=== PATIENT | male | born 1930 | race American Indian/Alaskan Native ===

== ENCOUNTER 2020-05-05 13:02 | Emergency (ER) | payer MEDICARE ==
--- NOTE | 2020-05-05 14:04 | Emergency Department Report ---
ED General Adult HPI - General Chief complaint: BP Check / Ring removal req Stated complaint: HYPOTENSION Time Seen by Provider: 05/05/20 13:48 Source: EMS Mode of arrival: Stretcher Limitations: Altered Mental Status, Physical Limitation - History of Present Illness Initial comments: The patient presents to the emergency department via EMS from a doctor's appointment. Per the facility the patient presented from EMS was called due to the patient having a systolic blood pressure in the 80s. Upon EMSs arrival the patient's blood pressure was normotensive and since has had normal blood pressures. Patient denies chest pain, shortness breath, or abdominal pain. -: unknown Severity scale (0 -10): 0 Consistency: now resolved Improves with: none Worsens with: none Associated Symptoms: denies other symptoms Treatments Prior to Arrival: none - Related Data Home Medications Medication Instructions Recorded Confirmed Last Taken Losartan [Cozaar] 50 mg PO DAILY 04/12/14 04/29/14 04/27/14 21:30 Lovastatin [Altoprev] 40 mg PO QHS 04/12/14 04/29/14 04/28/14 22:20 Tamsulosin [Flomax] 0.4 mg PO DAILY 04/12/14 04/29/14 04/28/14 10:30 Previous Rx's Medication Instructions Recorded Last Taken Type Dexamethasone (Nf) [Decadron (Nf)] 0.5 mg PO Q12HR #60 tablet 04/26/14 04/29/14 08:01 Rx Insulin Glulisine [Apidra] 10 units SUB-Q AC #100 units 04/26/14 04/28/14 22:20 Rx Ipratropium/Albuterol Sulfate 1 ampul IH TIDRT #1 mo 04/26/14 Unknown Rx [DUONEB *Not for PRN Use*] levETIRAcetam [Keppra] 750 mg PO Q12HR #1 bottle 04/26/14 04/29/14 07:51 Rx Ferrous Gluconate [Fergon 325 MG 324 mg PO QDAY #30 tablet 10/14/19 Unknown Rx tab] Pantoprazole [Protonix TAB] 40 mg PO BID #30 tablet 10/14/19 04/28/14 10:30 Rx Allergies Allergy/AdvReac Type Severity Reaction Status Date / Time No Known Allergies Allergy Verified 04/12/14 05:29 ED Review of Systems ROS: Stated complaint: HYPOTENSION Other details as noted in HPI Comment: All other systems reviewed and negative Constitutional: denies: chills, fever Eyes: denies: eye pain, eye discharge, vision change ENT: denies: ear pain, throat pain Respiratory: denies: cough, shortness of breath, wheezing Cardiovascular: denies: chest pain, palpitations Endocrine: no symptoms reported Gastrointestinal: denies: abdominal pain, nausea, diarrhea Genitourinary: denies: urgency, dysuria Musculoskeletal: denies: back pain, joint swelling, arthralgia Skin: denies: rash, lesions Neurological: denies: headache, weakness, paresthesias Psychiatric: denies: anxiety, depression Hematological/Lymphatic: denies: easy bleeding, easy bruising ED Past Medical Hx - Past Medical History Previous Medical History?: Yes Hx Hypertension: Yes Hx Diabetes: Yes Hx Seizures: Yes (brain tumor) - Surgical History Hx Pacemaker: No Hx Internal Defibrillator: No - Social History Smoking Status: Unknown if ever smoked - Medications Home Medications: Home Medications Medication Instructions Recorded Confirmed Last Taken Type Losartan [Cozaar] 50 mg PO DAILY 04/12/14 04/29/14 04/27/14 21:30 History Lovastatin [Altoprev] 40 mg PO QHS 04/12/14 04/29/14 04/28/14 22:20 History Tamsulosin [Flomax] 0.4 mg PO DAILY 04/12/14 04/29/14 04/28/14 10:30 History Dexamethasone (Nf) [Decadron (Nf)] 0.5 mg PO Q12HR #60 tablet 04/26/14 04/29/14 04/29/14 08:01 Rx Insulin Glulisine [Apidra] 10 units SUB-Q AC #100 units 04/26/14 04/29/14 04/28/14 22:20 Rx Ipratropium/Albuterol Sulfate 1 ampul IH TIDRT #1 mo 04/26/14 04/29/14 Unknown R x [DUONEB *Not for PRN Use*] levETIRAcetam [Keppra] 750 mg PO Q12HR #1 bottle 04/26/14 04/29/14 04/29/14 07:51 Rx Ferrous Gluconate [Fergon 325 MG 324 mg PO QDAY #30 tablet 10/14/19 Unknown Rx tab] Pantoprazole [Protonix TAB] 40 mg PO BID #30 tablet 10/14/19 04/29/14 04/28/14 10:30 Rx ED Physical Exam - General Limitations: Altered Mental Status, Physical Limitation General appearance: alert, in no apparent distress, other (Patient is cold to touch) - Head Head exam: Present: atraumatic, normocephalic - Eye Eye exam: Present: normal appearance, PERRL, EOMI - ENT ENT exam: Present: mucous membranes moist - Neck Neck exam: Present: normal inspection - Respiratory Respiratory exam: Present: normal lung sounds bilaterally. Absent: respiratory distress - Cardiovascular Cardiovascular Exam: Present: regular rate, normal rhythm. Absent: systolic murmur, diastolic murmur, rubs, gallop - GI/Abdominal GI/Abdominal exam: Present: soft, normal bowel sounds. Absent: distended, tenderness - Rectal Rectal exam: Present: deferred - Extremities Exam Extremities exam: Present: normal inspection - Back Exam Back exam: Present: normal inspection - Neurological Exam Neurological exam: Present: alert, oriented X3, CN II-XII intact. Absent: motor sensory deficit - Psychiatric Psychiatric exam: Present: normal affect, normal mood - Skin Skin exam: Present: warm, dry, intact, normal color. Absent: rash ED Course Vital Signs 05/05/20 05/05/20 13:31 15:31 Temperature 97.9 F Pulse Rate 91 H 80 Respiratory 15 20 Rate Blood Pressure 125/57 106/49 [Right] O2 Sat by Pulse 97 100 Oximetry ED Medical Decision Making - Lab Data Result diagrams: 05/05/20 14:26 05/05/20 14:26 Lab Results 05/05/20 05/05/20 05/05/20 Range/Units 14:26 14:26 16:09 WBC 5.7 (4.5-11.0) K/mm3 RBC 3.29 L (3.65-5.03) M/mm3 Hgb 9.4 L (11.8-15.2) gm/dl Hct 29.4 L (35.5-45.6) % MCV 89 (84-94) fl MCH 29 (28-32) pg MCHC 32 (32-34) % RDW 15.8 H (13.2-15.2) % Plt Count 376 (140-440) K/mm3 Lymph % (Auto) 8.5 L (13.4-35.0) % [place] % (Auto) 5.7 (0.0-7.3) % Eos % (Auto) 0.2 (0.0-4.3) % Baso % (Auto) 0.4 (0.0-1.8) % Lymph # (Auto) 0.5 L (1.2-5.4) K/mm3 [place] # (Auto) 0.3 (0.0-0.8) K/mm3 Eos # (Auto) 0.0 (0.0-0.4) K/mm3 Baso # (Auto) 0.0 (0.0-0.1) K/mm3 Seg Neutrophils % 85.2 H (40.0-70.0) % Seg Neutrophils # 4.8 (1.8-7.7) K/mm3 Sodium 140 (137-145) mmol/L Potassium 4.6 (3.6-5.0) mmol/L Chloride 105.6 (98-107) mmol/L Carbon Dioxide 23 (22-30) mmol/L Anion Gap 16 mmol/L BUN 11 (9-20) mg/dL Creatinine 0.6 L (0.8-1.3) mg/dL Estimated GFR > 60 ml/min BUN/Creatinine Ratio 18 % Glucose 143 H (75-100) mg/dL Calcium 8.3 L (8.4-10.2) mg/dL Total Bilirubin 0.30 (0.1-1.2) mg/dL AST 38 (5-40) units/L ALT 12 (7-56) units/L Alkaline Phosphatase 354 H (35-129) units/L Total Protein 5.6 L (6.3-8.2) g/dL Albumin 2.8 L (3.9-5) g/dL Albumin/Globulin Ratio 1.0 % Urine Color Yellow (Yellow) Urine Turbidity Clear (Clear) Urine pH 6.0 (5.0-7.0) Ur Specific [place] 1.015 (1.003-1.030) Urine Protein 30 mg/dl (Negative) mg/dL Urine Glucose (UA) Neg (Negative) mg/dL Urine Ketones Neg (Negative) mg/dL Urine Blood Neg (Negative) Urine Nitrite Neg (Negative) Urine Bilirubin Neg (Negative) Urine Urobilinogen 2.0 (<2.0) mg/dL Ur Leukocyte Esterase Neg (Negative) Urine WBC (Auto) 2.0 (0.0-6.0) /HPF Urine RBC (Auto) 1.0 (0.0-6.0) /HPF U Epithel Cells (Auto) < 1.0 (0-13.0) /HPF Hyaline Casts 1 /LPF Urine Mucus Few /HPF - Radiology Data Radiology results: report reviewed - Medical Decision Making Results discussed with patient Patient stayed normotensive throughout his ED stay and without complaints The area and BP reading prior to the patient's ED might have been secondary to operational error Critical care attestation.: If time is entered above; I have spent that time in minutes in the direct care of this critically ill patient, excluding procedure time. ED Disposition Clinical Impression: Abnormal blood pressure, Blood pressure, low, incidental finding Disposition: DC-01 TO HOME OR SELFCARE Is pt being admited?: No Does the pt Need Aspirin: No Condition: Stable Instructions: How to Take Your Blood Pressure, [id number], Form - Blood Pressure Record Sheet Additional Instructions: Return if worse Referrals: JONATHON METCALF MD [Primary Care Provider] - 3-5 Days Time of Disposition: 16:38
[2020-05-05 14:47] LABS: Basophils % (Auto) 0.4 % (0.0-1.8); Eosinophils % (Auto) 0.2 % (0.0-4.3); Hematocrit 29.4 % (35.5-45.6); Hemoglobin 9.4 gm/dl (11.8-15.2); Lymphocytes # (Auto) 0.5 K/mm3 (1.2-5.4); Lymphocytes % (Auto) 8.5 % (13.4-35.0); Mean Corpuscular HGB Conc 32 % (32-34); Mean Corpuscular Volume 89 fl (84-94); Monocytes # (Auto) 0.3 K/mm3 (0.0-0.8); Monocytes % (Auto) 5.7 % (0.0-7.3); Platelet Count 376 K/mm3 (140-440); Red Blood Count 3.29 M/mm3 (3.65-5.03); Red Cell Distribution Width 15.8 % (13.2-15.2)
--- NOTE | 2020-05-05 15:09 | XRay Report ---
XR chest 1V ap INDICATION / CLINICAL INFORMATION: hypotension. COMPARISON: 04/24/2014 FINDINGS: SUPPORT DEVICES: None. HEART /PULMONARY VASCULATURE: No significant abnormality. LUNGS / PLEURA: Low lung volumes are present. There is no definite airspace consolidation. No pleural effusion. No pneumothorax. ADDITIONAL FINDINGS: No significant additional findings. IMPRESSION: Low lung volumes without acute cardiopulmonary abnormality. Signer Name: Caden Ivy MD Signed: 05/05/2020 3:05 PM Workstation Name: [id number]
[2020-05-05 15:32] VITALS: BP 106/49
[2020-05-05 15:50] LABS: Alanine Aminotransferase 12 units/L (7-56); Albumin 2.8 g/dL (3.9-5); Blood Urea Nitrogen 11 mg/dL (9-20); Calcium 8.3 mg/dL (8.4-10.2); Hemolysis Index 15
[2020-05-05 15:55] LABS: BUN/Creatinine Ratio 18
[2020-05-05 16:19] LABS: Bilirubin,Urine NEG (Negative); Blood,Urine NEG (Negative); Color,Urine Yellow (Yellow); Hyaline Casts,Urine 1 /LPF; Mucus,Urine FEW /HPF
== END 2020-05-05 18:14 | disposition home or self-care (01) ==
LOC: ED 13:02
DX: I95.9 Hypotension, unspecified (principal); E11.9 Type 2 diabetes mellitus without complications; R56.9 Unspecified convulsions; Z79.4 Long term (current) use of insulin; Z79.899 Other long term (current) drug therapy
CPT/HCPCS: 36415; 71045; 80053; 81001; 85025

== ENCOUNTER 2020-06-14 20:49 | Emergency (ER) | payer MEDICARE ==
--- NOTE | 2020-06-14 22:22 | Event Note ---
ED Screening Note Date of service: 06/14/20 Time: 22:00 ED Screening Note: Patient is an 89-year-old -[place] male with a history of chronic iron deficiency anemia and hypertension who presents to the ED with complaint of persistent gradually worsening generalized weakness and fatigue for the last 3 months, worse in the last 1 week. Family states that the patient has also had lack of appetite in the last 4 days. Family states that the patient is unable to walk and perform normal activities of daily living because of worsening weakness. Patient denies chest pain, shortness of breath, dizziness, syncope, abdominal pain, nausea and vomiting, diarrhea, fever, chills, cough, change in vision or headache. This initial assessment/diagnostic orders/clinical plan/treatment(s) is/are subject to change based on patients health status, clinical progression and re- assessment by fellow clinical providers in the ED. Further treatment and workup at subsequent clinical providers discretion. Patient/guardian urged not to elope from the ED as their condition may be serious if not clinically assessed and managed. Initial orders include: CBC, [employer], UA, Troponin, EKG, CXR
--- NOTE | 2020-06-14 22:56 | XRay Report ---
CHEST 1 VIEW INDICATION: Generalized weakness. COMPARISON: 05/05/2020 FINDINGS: Support devices: None. Heart: Normal. Lungs/Pleura: No acute pulmonary or pleural findings. IMPRESSION: 1. No acute findings, no significant change. Signer Name: Shane Schaffer MD Signed: 06/14/2020 10:51 PM Workstation Name: [id number]
[2020-06-14 23:55] LABS: Basophils % (Auto) 0.2 % (0.0-1.8); Hematocrit 28.6 % (35.5-45.6); Hemoglobin 9.2 gm/dl (11.8-15.2); Lymphocytes # (Auto) 0.7 K/mm3 (1.2-5.4); Lymphocytes % (Auto) 6.5 % (13.4-35.0); Mean Corpuscular HGB Conc 32 % (32-34); Mean Corpuscular Volume 87 fl (84-94); Monocytes # (Auto) 0.5 K/mm3 (0.0-0.8); Monocytes % (Auto) 5.1 % (0.0-7.3); Platelet Count 417 K/mm3 (140-440); Red Blood Count 3.29 M/mm3 (3.65-5.03); Red Cell Distribution Width 16.7 % (13.2-15.2)
[2020-06-15 00:02] LABS: Alanine Aminotransferase 33 units/L (7-56); Blood Urea Nitrogen 15 mg/dL (9-20); Calcium 8.3 mg/dL (8.4-10.2); Hemolysis Index 14
[2020-06-15 00:11] LABS: BUN/Creatinine Ratio 25
--- NOTE | 2020-06-15 00:13 | Emergency Department Report ---
- General Chief complaint: Weakness Stated complaint: DIABETIC/NOT ON INSULIN/VERY LETHARGIC/NOT EATING Time Seen by Provider: 06/14/20 23:42 Source: patient, family Mode of arrival: Wheelchair Limitations: Physical Limitation - History of Present Illness Initial comments: 89-year-old male, history of diabetes, anemia, hyperlipidemia, presents to ED with generalized weakness. Daughter at bedside to give history. States patient has been becoming increasingly weaker over the last couple of weeks. She states patient is unable to walk using his walker or stand for long peers of time anymore. Daughter states this became worse today. States patient has no appetite and is not eating as he usually does. She denies that patient has had any fever, vomiting, diarrhea cough. However, patient is actively coughing during my exam. Daughter reports patient has not been vaccinated for COVID-19, nor has any other family members on the home. She states they are not comfortable with the idea of the vaccine at this time. Patient is alert, shakes his head to agree that he is not feeling well, however, he is not conversational with me. MD Complaint: generalized weakness -: week(s) (2) Location: generalized Severity: moderate Consistency: constant Improves with: none Worsens with: none Associated Symptoms: loss of appetite. denies: dark stools, fever/chills, nausea/vomiting, shortness of breath - Related Data Home Medications Medication Instructions Recorded Confirmed Last Taken Losartan [Cozaar] 50 mg PO DAILY 04/12/14 04/29/14 04/27/14 21:30 Lovastatin [Altoprev] 40 mg PO QHS 04/12/14 04/29/14 04/28/14 22:20 Tamsulosin [Flomax] 0.4 mg PO DAILY 04/12/14 04/29/14 04/28/14 10:30 Previous Rx's Medication Instructions Recorded Last Taken Type Dexamethasone (Nf) [Decadron (Nf)] 0.5 mg PO Q12HR #60 tablet 04/26/14 04/29/14 08:01 Rx Insulin Glulisine [Apidra] 10 units SUB-Q AC #100 units 04/26/14 04/28/14 22:20 Rx Ipratropium/Albuterol Sulfate 1 ampul IH TIDRT #1 mo 04/26/14 Unknown Rx [DUONEB *Not for PRN Use*] levETIRAcetam [Keppra] 750 mg PO Q12HR #1 bottle 04/26/14 04/29/14 07:51 Rx Ferrous Gluconate [Fergon 325 MG 324 mg PO QDAY #30 tablet 10/14/19 Unknown Rx tab] Pantoprazole [Protonix TAB] 40 mg PO BID #30 tablet 10/14/19 04/28/14 10:30 Rx Nitrofurantoin [place]/M-Cryst 100 mg PO Q12HR #14 capsule 06/15/20 Unknown Rx [Macrobid CAP] Allergies Allergy/AdvReac Type Severity Reaction Status Date / Time No Known Allergies Allergy Verified 04/12/14 05:29 ED Review of Systems ROS: Stated complaint: DIABETIC/NOT ON INSULIN/VERY LETHARGIC/NOT EATING Other details as noted in HPI Comment: All other systems reviewed and negative Constitutional: denies: fever Respiratory: cough Gastrointestinal: denies: vomiting, diarrhea, melena ED Past Medical Hx - Past Medical History Previous Medical History?: Yes Hx Hypertension: Yes Hx Diabetes: Yes Hx Seizures: Yes (brain tumor) Additional medical history: Anemia - Surgical History Past Surgical History?: No Hx Pacemaker: No Hx Internal Defibrillator: No - Social History Smoking Status: Never Smoker Substance Use Type: None - Medications Home Medications: Home Medications Medication Instructions Recorded Confirmed Last Taken Type Losartan [Cozaar] 50 mg PO DAILY 04/12/14 04/29/14 04/27/14 21:30 History Lovastatin [Altoprev] 40 mg PO QHS 04/12/14 04/29/14 04/28/14 22:20 History Tamsulosin [Flomax] 0.4 mg PO DAILY 04/12/14 04/29/14 04/28/14 10:30 History Dexamethasone (Nf) [Decadron (Nf)] 0.5 mg PO Q12HR #60 tablet 04/26/14 04/29/14 04/29/14 08:01 Rx Insulin Glulisine [Apidra] 10 units SUB-Q AC #100 units 04/26/14 04/29/14 04/28/14 22:20 Rx Ipratropium/Albuterol Sulfate 1 ampul IH TIDRT #1 mo 04/26/14 04/29/14 Unknown Rx [DUONEB *Not for PRN Use*] levETIRAcetam [Keppra] 750 mg PO Q12HR #1 bottle 04/26/14 04/29/14 04/29/14 07:5 1 Rx Ferrous Gluconate [Fergon 325 MG 324 mg PO QDAY #30 tablet 10/14/19 Unknown Rx tab] Pantoprazole [Protonix TAB] 40 mg PO BID #30 tablet 10/14/19 04/29/14 04/28/14 10:30 Rx Nitrofurantoin [place]/M-Cryst 100 mg PO Q12HR #14 capsule 06/15/20 Unknown Rx [Macrobid CAP] ED Physical Exam - General Limitations: Physical Limitation General appearance: alert, in no apparent distress - Head Head exam: Present: atraumatic, normocephalic - Eye Eye exam: Present: normal appearance, EOMI - ENT ENT exam: Present: mucous membranes moist - Neck Neck exam: Present: normal inspection - Respiratory Respiratory exam: Present: normal lung sounds bilaterally. Absent: respiratory distress - Cardiovascular Cardiovascular Exam: Present: normal rhythm, tachycardia - GI/Abdominal GI/Abdominal exam: Present: soft. Absent: distended, tenderness - Extremities Exam Extremities exam: Present: normal inspection - Neurological Exam Neurological exam: Present: alert - Psychiatric Psychiatric exam: Present: flat affect - Skin Skin exam: Present: warm, dry, intact, normal color ED Course Vital Signs 06/14/20 06/15/20 06/15/20 22:01 02:21 03:01 Temperature 99.0 F Pulse Rate 105 H 104 H 101 H Respiratory 18 16 18 Rate Blood Pressure 131/55 Blood Pressure 162/76 145/55 [Left] O2 Sat by Pulse 98 94 95 Oximetry - Reevaluation(s) Reevaluation #1: 06/15/20 02:27 CT scan shows likely colonic mass with metastatic lesions. Patient was admitted to the hospital back in October 2019 for GI bleed. He was supposed to follow-up on an outpatient basis for colonoscopy. Daughter tells me that patient's PCP advised against colonoscopy due to patient's age, so patient did not undergo scoping. ED Medical Decision Making - Lab Data Result diagrams: 06/14/20 22:58 06/14/20 22:58 - Radiology Data Radiology results: report reviewed, image reviewed - Medical Decision Making 89-year-old male presents to the ED with progressive generalized weakness over several months. Vital signs are normal and stable. Chest x-ray is un remarkable. Labs show some abnormalities and liver enzymes, so CT abdomen pelvis was obtained. CT shows likely colonic mass with metastatic lesions to the liver, spine, pelvis, and lungs. I spoke with patient's daughter regarding the CT findings, informing her that it appears that patient likely has colon cancer with metastasis to various parts of his body. Patient does not require hospital admission at this time. Explained that patient will need to follow-up with his primary care physician to determine need for hospice versus oncology referral. - Differential Diagnosis COVID-19, pneumonia, UTI, dehydration Critical care attestation.: If time is entered above; I have spent that time in minutes in the direct care of this critically ill patient, excluding procedure time. ED Disposition Clinical Impression: Generalized weakness, Colonic mass, Metastatic neoplasm, UTI (urinary tract infection) Disposition: DC- TO HOME OR SELFCARE Is pt being admited?: No Condition: Stable Instructions: Urinary Tract Infection, Adult, [id number], Colon Mass, Adult Prescriptions: Nitrofurantoin [place]/M-Cryst [Macrobid CAP] 100 mg PO Q12HR #14 capsule Referrals: PRIMARY CARE, [Primary Care Provider] - 2-3 Days Time of Disposition: 03:58
[2020-06-15] MEDS ORDERED: SODIUM CHLORIDE 0.9% 1000 ML 1,000 ML IV ONE (00:18)
--- NOTE | 2020-06-15 02:02 | Cat Scan Report ---
CT ABDOMEN AND PELVIS WITH IV CONTRAST INDICATION: weakness, not eating, elevated alk phos. COMPARISON: None available. TECHNIQUE: All CT scans at this facility use dose modulation, automated exposure control, iterative reconstructi on or weight based dosing, when appropriate, to reduce radiation dose to as low as reasonably achieva ble. FINDINGS: Lung Bases: Extensive peribronchovascular reticulonodular disease is seen in the left lower lobe. Mil d but similar changes are seen within the right lower lung. There are a few more isolated punctate no dules in the right middle lobe. Skeletal System: There are numerous patchy sclerotic areas within the spine and pelvis. ABDOMEN: Liver: There are innumerable hypodense lesions throughout the liver concerning for extensive metastat ic disease. Gallbladder: No significant abnormality. Bile Ducts: No significant abnormality. Pancreas: No significant abnormality. Spleen: No significant abnormality. Adrenals: No significant abnormality. Right Kidney: No significant abnormality. Left Kidney: No significant abnormality. Upper GI tract: No significant abnormality. Lymph Nodes: There are a few mildly enlarged para-aortic nodes inferiorly. Aorta: No significant abnormality. Additional Findings: No significant abnormality. PELVIS: Colon: In the proximal sigmoid colon left lower quadrant there is segmental colonic wall thickening with adjacent small pericolonic nodes. There is mild stranding. Diverticulosis and constipation are n oted. Diverticulosis is noted. Urinary Bladder and Distal Ureters: No significant abnormality. Appendix: No significant abnormality. Lymph Nodes: No significant adenopathy. Additional Findings: Prostate is markedly enlarged and heterogeneous. IMPRESSION: 1. Segmental colonic wall thickening in the proximal sigmoid colon ("Apple core" lesion) consistent with primary colon cancer. 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 2. Prostate is markedly enlarged. Patchy sclerotic foci within the spine and pelvis are somewhat ill -defined. These could be metastatic lesions. 3. Advanced lower airways disease left lower lobe. Atypical infection such as mycobacterium could hav e this appearance. There are a few punctate nodules in the right middle lobe which could be additiona l inflammatory process. However, given the above findings, these could be metastatic. Signer Name: Shane Schaffer MD Signed: 06/15/2020 1:58 AM Workstation Name: [id number]
[2020-06-15 03:02] VITALS: BP 145/55
[2020-06-15 03:44] LABS: Bacteria,Urine 1+ /HPF (Negative); Bilirubin,Urine NEG (Negative); Blood,Urine LG (Negative); Color,Urine Yellow (Yellow); Mucus,Urine FEW /HPF; Urobilinogen,Urine < 2.0 mg/dL (<2.0)
[2020-06-15 03:47] LABS: RBC,Urine > 182.0 /HPF (0.0-6.0)
== END 2020-06-15 06:02 | disposition home or self-care (01) ==
LOC: ED 20:49
DX: C78.7 Secondary malignant neoplasm of liver and intrahepatic bile duct (principal); C78.00 Secondary malignant neoplasm of unspecified lung; N39.0 Urinary tract infection, site not specified; K63.9 Disease of intestine, unspecified; R53.1 Weakness; I10 Essential (primary) hypertension; E11.9 Type 2 diabetes mellitus without complications; R56.9 Unspecified convulsions; Z79.4 Long term (current) use of insulin; Z79.899 Other long term (current) drug therapy
CPT/HCPCS: 36415; 71045; 74177; 80053; 81001; 84484; 85025; 87086; 93005; 96360; 99284; J7030; Q9967

== ENCOUNTER 2020-07-08 16:30 | Inpatient (IN) | payer MEDICARE ==
[2020-07-08] MEDS ORDERED: SODIUM CHLORIDE 0.9% 1000 ML 1,000 ML IV ONE ×2 (16:54→21:04)
[2020-07-08] MEDS ORDERED: ONDANSETRON 4 MG/2 ML INJ IV ONE (16:55)
--- NOTE | 2020-07-08 16:58 | Emergency Department Report ---
ED Syncope HPI - General Chief Complaint: Syncope Stated Complaint: SYNCOPE Time Seen by Provider: 07/08/20 16:54 Source: patient, EMS - History of Present Illness Initial Comments: Patient is 89 years old male with history of hypertension, diabetes, brain tumor with history of seizure, colon cancer. Patient brought to the emergency room via EMS from home for evaluation of single episode of syncope that happened while patient was sitting on a toilet this afternoon. Patient stated that he is not feeling well he feels weak all over. Patient is alert, oriented x3 and able to answer questions appropriately. Patient currently denying any chest pain or shortness of breath. No abdominal pain or vomiting however he stated that he is nauseated. Patient denied any blood in the stool and EMS also confirmed that with patient family that there is no blood on the toilet. Family also denied any recent fever or chills. No cough. Timing/Prior Episodes: single episode today Precipitating Factors: Positive: lightheadedness Context: sitting Loss of Consciousness: no loss of consciousness Current Symptoms: back to normal - Related Data Allergies/Adverse Reactions: Allergies No Known Allergies Allergy (Verified 04/12/14 05:29) Home Medications: Ambulatory Orders Losartan [Cozaar] 50 mg PO DAILY 04/12/14 Lovastatin [Altoprev] 40 mg PO QHS 04/12/14 Tamsulosin [Flomax] 0.4 mg PO DAILY 04/12/14 Dexamethasone (Nf) [Decadron (Nf)] 0.5 mg PO Q12HR #60 tablet 04/26/14 Insulin Glulisine [Apidra] 10 units SUB-Q AC #100 units 04/26/14 Ipratropium/Albuterol Sulfate [DUONEB *Not for PRN Use*] 1 ampul IH TIDRT #1 mo 04/26/14 levETIRAcetam [Keppra] 750 mg PO Q12HR #1 bottle 04/26/14 Ferrous Gluconate [Fergon 325 MG tab] 324 mg PO QDAY #30 tablet 10/14/19 Pantoprazole [Protonix TAB] 40 mg PO BID #30 tablet 10/14/19 Nitrofurantoin [place]/M-Cryst [Macrobid CAP] 100 mg PO Q12HR #14 capsule 06/15/20 ED Review of Systems ROS: Stated complaint: SYNCOPE Other details as noted in HPI Comment: All other systems reviewed and negative Constitutional: denies: chills, fever Respiratory: denies: cough, shortness of breath, SOB with exertion Cardiovascular: denies: chest pain, palpitations Gastrointestinal: nausea. denies: abdominal pain, vomiting, diarrhea, constipation, hematemesis, melena, hematochezia Genitourinary: denies: urgency, dysuria Musculoskeletal: denies: back pain Neurological: weakness. denies: headache, numbness, paresthesias, confusion, ab normal gait ED Past Medical Hx - Past Medical History Previous Medical History?: Yes Hx Hypertension: Yes Hx Diabetes: Yes Hx Seizures: Yes (brain tumor) Additional medical history: Anemia - Surgical History Hx Pacemaker: No Hx Internal Defibrillator: No - Social History Smoking Status: Unknown if ever smoked Substance Use Type: None - Medications Home Medications: Home Medications Medication Instructions Recorded Confirmed Last Taken Type Losartan [Cozaar] 50 mg PO DAILY 04/12/14 04/29/14 04/27/14 21:30 History Lovastatin [Altoprev] 40 mg PO QHS 04/12/14 04/29/14 04/28/14 22:20 History Tamsulosin [Flomax] 0.4 mg PO DAILY 04/12/14 04/29/14 04/28/14 10:30 History Dexamethasone (Nf) [Decadron (Nf)] 0.5 mg PO Q12HR #60 tablet 04/26/14 04/29/14 04/29/14 08:01 Rx Insulin Glulisine [Apidra] 10 units SUB-Q AC #100 units 04/26/14 04/29/14 22:20 Rx Ipratropium/Albuterol Sulfate 1 ampul IH TIDRT #1 mo 04/26/14 04/29/14 Unknown Rx [DUONEB *Not for PRN Use*] levETIRAcetam [Keppra] 750 mg PO Q12HR #1 bottle 04/26/14 04/29/14 04/29/14 07:51 Rx Ferrous Gluconate [Fergon 325 MG 324 mg PO QDAY #30 tablet 10/14/19 Unknown Rx tab] Pantoprazole [Protonix TAB] 40 mg PO BID #30 tablet 10/14/19 04/29/14 04/28/14 10:30 Rx Nitrofurantoin [place]/M-Cryst 100 mg PO Q12HR #14 capsule 06/15/20 Unknown Rx [Macrobid CAP] ED Physical Exam - General Limitations: No Limitations General appearance: alert, in no apparent distress - Head Head exam: Present: atraumatic, normocephalic, normal inspection - ENT ENT exam: Present: mucous membranes dry - Neck Neck exam: Present: normal inspection, full ROM. Absent: tenderness, meningismus - Respiratory Respiratory exam: Present: normal lung sounds bilaterally - Cardiovascular Cardiovascular Exam: Present: regular rate, normal rhythm, normal heart sounds - GI/Abdominal GI/Abdominal exam: Present: soft, normal bowel sounds. Absent: distended, tenderness, guarding, rebound, rigid, organomegaly, mass, bruit, pulsatile mass, hernia - Extremities Exam Extremities exam: Present: normal inspection, full ROM, normal capillary refill - Back Exam Back exam: Present: normal inspection, full ROM. Absent: CVA tenderness (R), CVA tenderness (L) - Neurological Exam Neurological exam: Present: alert, oriented X3, CN II-XII intact - Psychiatric Psychiatric exam: Present: normal mood - Skin Skin exam: Present: warm, dry, intact, normal color ED Course Vital Signs 07/08/20 07/08/20 07/08/20 16:34 17:45 19:34 Pulse Rate 97 H 89 Respiratory 16 27 H 20 Rate Blood Pressure 111/62 Blood Pressure 119/53 [Right] O2 Sat by Pulse 96 98 Oximetry 07/08/20 20:34 Pulse Rate 90 Respiratory 18 Rate Blood Pressure Blood Pressure 112/64 [Right] O2 Sat by Pulse 97 Oximetry ED Medical Decision Making - Lab Data Result diagrams: 07/08/20 18:02 07/08/20 18:02 - EKG Data -: EKG Interpreted by Vt EKG shows normal: sinus rhythm Rate: normal - EKG Data Interpretation: no acute changes - Radiology Data Radiology results: report reviewed - Medical Decision Making Patient is 89 years old male with history of hypertension, diabetes, brain tumor with history of seizure, colon cancer. Patient brought to the emergency room via EMS from home for evaluation of single episode of syncope that happened while patient was sitting on a toilet this afternoon. Patient stated that he is not feeling well he feels weak all over. Patient is alert, oriented x3 and able to answer questions appropriately. Patient currently denying any chest pain or shortness of breath. No abdominal pain or vomiting however he stated that he is nauseated. Patient denied any blood in the stool and EMS also confirmed that with patient family that there is no blood on the toilet. Family also denied any recent fever or chills. No cough. Patient is started on normal saline. EKG is unremarkable. Chest x-ray is negative for acute finding. CT brain is unremarkable. Labs reviewed and showed slight elevated troponin however patient still denying any chest pain he stated that he is having generalized weakness. Patient given aspirin. I discussed the patient with Dr. Damon, he agreed to admit the patient to medical service for further management. Critical care attestation.: If time is entered above; I have spent that time in minutes in the direct care of this critically ill patient, excluding procedure time. ED Disposition Clinical Impression: Weakness, Elevated troponin Disposition: OP ADMIT IP TO THIS HOSP Is pt being admited?: Yes Condition: Stable
--- NOTE | 2020-07-08 17:42 | XRay Report ---
CHEST 1 VIEW 07/08/2020 4:31 PM INDICATION / CLINICAL INFORMATION: Syncope. COMPARISON: 06/14/2020 FINDINGS: SUPPORT DEVICES: None. HEART / MEDIASTINUM: Stable. LUNGS / PLEURA: Unchanged appearance of the lungs when compared to 06/14/2020. No convincing evidence of acute pulmonary parenchymal or pleural abnormality. No pneumothorax. ADDITIONAL FINDINGS: No significant additional findings. IMPRESSION: 1. No significant change. Signer Name: Dmitry Gaytan MD Signed: 07/08/2020 5:38 PM Workstation Name: [id number]
--- NOTE | 2020-07-08 17:52 | Cat Scan Report ---
CT HEAD WITHOUT CONTRAST INDICATION / CLINICAL INFORMATION: Syncope. TECHNIQUE: All CT scans at this location are performed using CT dose reduction for ALARA by means of automated e xposure control. COMPARISON: Head CT 04/20/2014 and MRI brain 04/12/2014 FINDINGS: HEMORRHAGE: No evidence of intracranial hemorrhage or extra-axial fluid collection. EXTRA-AXIAL SPACES: Ex vacuo dilatation of cortical sulci is observed over the lateral convexity of t he left frontal and temporal lobes. Left sylvian fissure is dilated. Elsewhere, the cortical sulci an d sylvian fissures are enlarged reflecting a degree of parenchymal volume loss which is within normal limits for the patient's age of 89 years. Basilar cisterns have an unremarkable appearance. VENTRICULAR SYSTEM: The third and lateral ventricles are enlarged reflecting presence of age related parenchymal volume loss. CEREBRAL PARENCHYMA: Extensive encephalomalacia is observed involving portions of the left frontal an d temporal lobes. This is secondary to remote brain injury. 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 Encephaloma lacia is also evident in the right frontal lobe. MIDLINE SHIFT OR HERNIATION: There is no mass effect. CEREBELLUM / BRAINSTEM: Brainstem has an unremarkable appearance. Age related cerebellar atrophy is n oted. MIDLINE STRUCTURES:Pituitary gland has an unremarkable appearance. No abnormalities are seen in the p ineal region. INTRACRANIAL VESSELS:Calcified atherosclerotic plaque is present along the course of the cavernous se gments of both internal carotid arteries. Similar findings are seen at the distal vertebral arteries. ORBITS: Patient is status post bilateral cataract surgery. The orbits have an otherwise unremarkable appearance. SOFT TISSUES of HEAD: No significant abnormality. CALVARIUM: Status post left pterional and frontal craniotomy with cranioplasty. No additional abnorma lities. PARANASAL SINUSES / MASTOID AIR CELLS: Paranasal sinuses are free from inflammatory mucosal disease. Mastoid air cells are normally pneumatized. IMPRESSION: 1. No acute intracranial abnormality. 2. Age-related changes of atrophy and microvascular ischemia. 2. Status post remote left pterional and frontal craniotomy with adjacent encephalomalacia in the lef t frontal and temporal lobes. Signer Name: Raffaele Duncan MD Signed: 07/08/2020 5:48 PM Workstation Name: [id number]
[2020-07-08 18:40] LABS: Blood Urea Nitrogen 19 mg/dL (9-20); Calcium 7.7 mg/dL (8.4-10.2); Hemolysis Index 5
[2020-07-08 18:42] LABS: Basophils % (Auto) 0.2 % (0.0-1.8); Hematocrit 29.7 % (35.5-45.6); Hemoglobin 9.3 gm/dl (11.8-15.2); Lymphocytes # (Auto) 0.5 K/mm3 (1.2-5.4); Lymphocytes % (Auto) 6.9 % (13.4-35.0); Mean Corpuscular HGB Conc 31 % (32-34); Mean Corpuscular Volume 87 fl (84-94); Monocytes # (Auto) 0.5 K/mm3 (0.0-0.8); Monocytes % (Auto) 6.3 % (0.0-7.3); Platelet Count 332 K/mm3 (140-440); Red Blood Count 3.42 M/mm3 (3.65-5.03); Red Cell Distribution Width 19.7 % (13.2-15.2)
[2020-07-08 18:51] LABS: BUN/Creatinine Ratio 27
[2020-07-08 18:57] LABS: INR 1.12 (0.87-1.13)
[2020-07-08] MEDS ORDERED: ASPIRIN 81 MG TAB CHEW PO ONE (19:04)
[2020-07-08 20:37] LABS: Albumin 2.6 g/dL (3.9-5); Bilirubin,Direct 0.3 mg/dL (0-0.2)
[2020-07-08] MEDS ORDERED: ONDANSETRON 4 MG/2 ML INJ IV PRN (22:12)
[2020-07-08] MEDS ORDERED: MAGNESIUM HYDROXIDE (MOM) ORAL LIQD UDC PO PRN (22:12)
[2020-07-08] MEDS ORDERED: NITROGLYCERIN 0.4 MG TAB SUBL SL PRN (22:12)
[2020-07-08] MEDS ORDERED: DEXTROSE 50% IN WATER (25GM) 50 ML SYRINGE IV PRN (22:12)
[2020-07-08] MEDS ORDERED: ACETAMINOPHEN 325 MG TAB PO PRN ×2 (22:12)
[2020-07-08] MEDS ORDERED: traMADol 50 MG TAB PO PRN (22:12)
[2020-07-08] MEDS ORDERED: MORPHINE 4 MG/1 ML INJ IV PRN (22:12)
[2020-07-08] MEDS ORDERED: SODIUM CHLORIDE 0.9% 1000 ML 1,000 ML IV SCH (22:15)
[2020-07-08 22:25] LABS: Chol/HDL Ratio 2.26 %; HDL Cholesterol 60 mg/dL (40-59); LDL Cholesterol,Direct 52 mg/dL (50-130)
--- NOTE | 2020-07-08 22:32 | History and Physical Report ---
History of Present Illness Date of examination: 07/08/20 Date of admission: 07/08/20 21:53 Chief complaint: Syncope History of present illness: 89-year-old -[place] male with known history of hypertension, diabetes mellitus, brain tumor with history of seizures and colon cancer was brought into the emergency room by EMS today for evaluation of syncope which occurred while he was in the bathroom this afternoon. Patient states that he just feels generally weak. He denies any fever or chills, no chest pain or shortness of breath, no nausea vomiting and no diarrhea. Denies any headache or dizziness, no hematemesis, no bright red blood per rectum, no melena. However patient feels lightheaded occasionally. There has been no history of any sick contacts or recent travel. There is no contact with anyone with COVID-19. Work-up in the emergency room today, EKG, chest x-ray, CT scan of the head were unremarkable. However there was an elevation of his troponin level. Hemoglobin and hematocrit were 9.3 and 29.7 respectively. Urinalysis is being awaited. Patient has been admitted for syncope with an accompanying elevation of troponin level. Past History Past Medical History: anemia, diabetes, hypertension, hyperlipidemia, seizures, other (Brain Tumor, BPH) Past Surgical History: No surgical history Social history: no significant social history Family history: no significant family history Medications and Allergies Allergies Allergy/AdvReac Type Severity Reaction Status Date / Time No Known Allergies Allergy Verified 04/12/14 05:29 Home Medications Medication Instructions Recorded Confirmed Last Taken Type Losartan [Cozaar] 50 mg PO DAILY 04/12/14 04/29/14 04/27/14 21:30 History Lovastatin [Altoprev] 40 mg PO QHS 04/12/14 04/29/14 04/28/14 22:20 History Tamsulosin [Flomax] 0.4 mg PO DAILY 04/12/14 04/29/14 04/28/14 10:30 History Dexamethasone (Nf) [Decadron (Nf)] 0.5 mg PO Q12HR #60 tablet 04/26/14 04/29/14 04/29/14 08:01 Rx Insulin Glulisine [Apidra] 10 units SUB-Q AC #100 units 04/26/14 04/29/14 04/28/14 22:20 Rx Ipratropium/Albuterol Sulfate 1 ampul IH TIDRT #1 mo 04/26/14 04/29/14 Unknown Rx [DUONEB *Not for PRN Use*] levETIRAcetam [Keppra] 750 mg PO Q12HR #1 bottle 04/26/14 04/29/14 04/29/14 07:51 Rx Ferrous Gluconate [Fergon 325 MG 324 mg PO QDAY #30 tablet 10/14/19 Unknown Rx tab] Pantoprazole [Protonix TAB] 40 mg PO BID #30 tablet 10/14/19 04/29/14 04/28/14 10:30 Rx Nitrofurantoin [place]/M-Cryst 100 mg PO Q12HR #14 capsule 06/15/20 Unknown Rx [Macrobid CAP] Review of Systems Constitutional: weakness, no fever, no chills Ears, nose, mouth and throat: no nasal congestion, no sore throat Cardiovascular: syncope, no chest pain, no palpitations Respiratory: no cough, no shortness of breath Gastrointestinal: no abdominal pain, no nausea, no vomiting, no diarrhea Genitourinary Male: no dysuria, no hematuria, no flank pain, no nocturia Musculoskeletal: no neck pain, no low back pain Integumentary: no rash, no pruritis Neurological: no headaches, no confusion Psychiatric: no anxiety, no depression Endocrine: no polyphagia, no polydipsia, no polyuria, no nocturia Exam - Constitutional Vitals: Temp Pulse Resp BP Pulse Ox 90 18 112/64 97 07/08/20 20:34 07/08/20 20:34 07/08/20 20:34 07/08/20 20:34 General appearance: Present: no acute distress, well-nourished - EENT Eyes: Present: PERRL, EOM intact. Absent: scleral icterus ENT: hearing intact, clear oral mucosa, dentition normal - Neck Neck: Present: supple, normal ROM - Respiratory Respiratory effort: normal Respiratory: bilateral: CTA - Cardiovascular Rhythm: regular Heart Sounds: Present: S1 & S2. Absent: gallop, systolic murmur, diastolic murmur, rub, click - Extremities Extremities: no ischemia, pulses intact, pulses symmetrical, No edema, normal temperature, normal color, Full ROM Peripheral Pulses: within normal limits - Abdominal General gastrointestinal: Present: soft, non-tender, non-distended, normal bowel sounds. Absent: mass - Integumentary Integumentary: Present: clear, warm, dry. Absent: rash - Musculoskeletal Musculoskeletal: strength equal bilaterally, other (Mildly contracted at the knees.) - Psychiatric Psychiatric: appropriate mood/affect, intact judgment & insight, memory intact, cooperative - Neurologic Neurologic: CNII-XII intact, no focal deficits, moves all extremities HEART Score - HEART Score History: Slightly suspicious EKG: Normal Age: > 65 Risk factors: 1-2 risk factors Troponin: Troponin T 0.078 ng/mL (0.00-0.029) H 07/08/20 21:39 Troponin: 1-3x normal limit HEART Score: 4 Results - Labs CBC & Chem 7: 07/08/20 18:02 07/08/20 18:02 Labs: Abnormal lab results 07/08/20 07/08/20 07/08/20 Range/Units 18:02 18:02 18:02 RBC 3.42 L (3.65-5.03) M/mm3 Hgb 9.3 L (11.8-15.2) gm/dl Hct 29.7 L (35.5-45.6) % MCH 27 L (28-32) pg MCHC 31 L (32-34) % RDW 19.7 H (13.2-15.2) % Lymph % (Auto) 6.9 L (13.4-35.0) % Lymph # (Auto) 0.5 L (1.2-5.4) K/mm3 Seg Neutrophils % 86.6 H (40.0-70.0) % Carbon Dioxide 20 L (22-30) mmol/L Creatinine 0.7 L (0.8-1.3) mg/dL Glucose 124 H (75-100) mg/dL Calcium 7.7 L (8.4-10.2) mg/dL Direct Bilirubin 0.3 H (0-0.2) mg/dL AST 106 H (5-40) units/L Alkaline Phosphatase 775 H (35-129) units/L Troponin T 0.081 H (0.00-0.029) ng/mL Total Protein 5.3 L (6.3-8.2) g/dL Albumin 2.6 L (3.9-5) g/dL HDL Cholesterol 60 H (40-59) mg/dL 07/08/20 Range/Units 21:39 RBC (3.65-5.03) M/mm3 Hgb (11.8-15.2) gm/dl Hct (35.5-45.6) % MCH (28-32) pg MCHC (32-34) % RDW (13.2-15.2) % Lymph % (Auto) (13.4-35.0) % Lymph # (Auto) (1.2-5.4) K/mm3 Seg Neutrophils % (40.0-70.0) % Carbon Dioxide (22-30) mmol/L Creatinine (0.8-1.3) mg/dL Glucose (75-100) mg/dL Calcium (8.4-10.2) mg/dL Direct Bilirubin (0-0.2) mg/dL AST (5-40) units/L Alkaline Phosphatase (35-129) units/L Troponin T 0.078 H (0.00-0.029) ng/mL Total Protein (6.3-8.2) g/dL Albumin (3.9-5) g/dL HDL Cholesterol (40-59) mg/dL Assessment and Plan - Patient Problems (1) Syncope and collapse Current Visit: Yes Status: Acute Plan to address problem: Etiology unclear. However this may be secondary to dehydration. We will place patient on IV fluid and monitor vital signs closely. We will also monitor orthostatics. We will schedule patient for echocardiogram and carotid Doppler. (2) Elevated troponin Current Visit: Yes Status: Acute Plan to address problem: Patient has denied any chest pain. We will trend troponin levels. Patient will be scheduled for echocardiogram. We will place consult to cardiology for evaluation and recommendations (3) BPH (benign prostatic hypertrophy) Current Visit: No Status: Acute Plan to address problem: We will continue patient on his routine home medications. (4) Diabetes mellitus, type 2 Current Visit: No Status: Acute Plan to address problem: We will monitor Accu-Cheks. Patient placed on sliding scale insulin. (5) Hyperlipidemia Current Visit: No Status: Acute Qualifiers: Hyperlipidemia type: mixed hyperlipidemia Qualified Code(s): E78.2 - Mixed hyperlipidemia Plan to address problem: We will continue routine home medications and monitor lipid profile. (6) DVT prophylaxis Current Visit: No Status: Acute Plan to address problem: Patient placed on subcutaneous heparin. (7) Full code status Current Visit: No Status: Acute Plan to address problem: Patient is a full code. (8) Microcytic anemia Current Visit: No Status: Acute Plan to address problem: Chronic. Will monitor CBC.
[2020-07-09] MEDS: HEPARIN 5,000 UNIT/1 ML VIAL SUB-Q SCH ×3 (06:11→21:51)
[2020-07-09] MEDS: INSULIN LISPRO 100 UNIT/ML SUB-Q SCH ×4 (08:16→21:51)
[2020-07-09] MEDS: ASPIRIN EC 325 MG TAB PO SCH (10:59)
--- NOTE | 2020-07-09 11:29 | Progress Note ---
Assessment and Plan Assessment and plan: (1) Syncope and collapse Current Visit: Yes Status: Acute Plan to address problem: Etiology unclear. However this may be secondary to dehydration. Echocardiogram pending. Needs orthostatic check (2) Elevated troponin Current Visit: Yes Status: Acute Plan to address problem: Patient has denied any chest pain. We will trend troponin levels. Echo pending. We will place consult to cardiology for evaluation and recommendations (3) BPH (benign prostatic hypertrophy) Current Visit: No Status: Acute Plan to address problem: We will continue patient on his routine home medications. (4) Diabetes mellitus, type 2 Current Visit: No Status: Acute Plan to address problem: We will monitor Accu-Cheks. Patient placed on sliding scale insulin. (5) Hyperlipidemia Current Visit: No Status: Acute Qualifiers: Hyperlipidemia type: mixed hyperlipidemia Qualified Code(s): E78.2 - Mixed hyperlipidemia Plan to address problem: We will continue routine home medications and monitor lipid profile. (6) DVT prophylaxis Current Visit: No Status: Acute Plan to address problem: Patient placed on subcutaneous heparin. (7) Full code status Current Visit: No Status: Acute Plan to address problem: Patient is a full code. (8) Microcytic anemia Current Visit: No Status: Acute Plan to address problem: Chronic. Will monitor CBC. History Interval history: 89-year-old -[place] male with known history of hypertension, diabetes mellitus, brain tumor with history of seizures and colon cancer was brought into the emergency room by EMS today for evaluation of syncope which occurred while he was in the bathroom this afternoon. Patient states that he just feels generally weak. He denies any fever or chills, no chest pain or shortness of breath, no nausea vomiting and no diarrhea. Denies any headache or dizziness, no hematemesis, no bright red blood per rectum, no melena. However patient feels lightheaded occasionally. There has been no history of any sick contacts or recent travel. There is no contact with anyone with COVID-19. Work-up in the emergency room today, EKG, chest x-ray, CT scan of the head were unremarkable. However there was an elevation of his troponin level. Hemoglobin and hematocrit were 9.3 and 29.7 respectively. Urinalysis is being awaited. Patient has been admitted for syncope with an accompanying elevation of troponin level. Hospital course 07/09. Has no complaints this morning. Looks weak. BMI 16. Nutrition referral. Echo pending. Will check orthostatic vitals.Cardiology to see. Hospitalist Physical - Physical exam Narrative exam: VITAL SIGNS: Reviewed. GENERAL: Awake HEAD: No signs of head trauma. EYES: Pupils are equal. Extraocular motions intact. MOUTH: Oropharynx is normal. NECK: No adenopathy, no JVD. CHEST: Chest with diminished breath sounds bilaterally. No wheezes, rales, or rhonchi. CARDIAC: normal S1 and S2, without murmurs, gallops, or rubs. ABDOMEN: Soft, non tender and non distended. No rebound or guarding, and no masses palpated. Bowel Sounds normal. MUSCULOSKELETAL: No edema NEUROLOGIC EXAM: Alert and oriented x3. No focal neurologic deficits SKIN: No obvious lesions - Constitutional Vitals: Temp Pulse Resp BP Pulse Ox 97.3 F L 96 H 18 110/57 95 07/09/20 07:23 07/09/20 10:00 07/09/20 07:23 07/09/20 07:23 07/09/20 07:23 HEART Score - HEART Score EKG: Normal Age: > 65 Risk factors: 1-2 risk factors Troponin: Troponin T 0.078 ng/mL (0.00-0.029) H 07/08/20 21:39 Troponin: 1-3x normal limit Results - Labs CBC & Chem 7: 07/08/20 18:02 07/08/20 18:02 Labs: Laboratory Last Values WBC 7.8 K/mm3 (4.5-11.0) 07/08/20 18:02 RBC 3.42 M/mm3 (3.65-5.03) L 07/08/20 18:02 Hgb 9.3 gm/dl (11.8-15.2) L 07/08/20 18:02 Hct 29.7 % (35.5-45.6) L 07/08/20 18:02 MCV 87 fl (84-94) 07/08/20 18:02 MCH 27 pg (28-32) L 07/08/20 18:02 MCHC 31 % (32-34) L 07/08/20 18:02 RDW 19.7 % (13.2-15.2) H 07/08/20 18:02 Plt Count 332 K/mm3 (140-440) 07/08/20 18:02 Lymph % (Auto) 6.9 % (13.4-35.0) L 07/08/20 18:02 [place] % (Auto) 6.3 % (0.0-7.3) 07/08/20 18:02 Eos % (Auto) 0.0 % (0.0-4.3) 07/08/20 18:02 Baso % (Auto) 0.2 % (0.0-1.8) 07/08/20 18:02 Lymph # (Auto) 0.5 K/mm3 (1.2-5.4) L 07/08/20 18:02 [place] # (Auto) 0.5 K/mm3 (0.0-0.8) 07/08/20 18:02 Eos # (Auto) 0.0 K/mm3 (0.0-0.4) 07/08/20 18:02 Baso # (Auto) 0.0 K/mm3 (0.0-0.1) 07/08/20 18:02 Seg Neutrophils % 86.6 % (40.0-70.0) H 07/08/20 18:02 Seg Neutrophils # 6.7 K/mm3 (1.8-7.7) 07/08/20 18:02 PT 14.3 Sec. (12.2-14.9) 07/08/20 18:02 INR 1.12 (0.87-1.13) 07/08/20 18:02 Sodium 138 mmol/L (137-145) 07/08/20 18:02 Potassium 4.6 mmol/L (3.6-5.0) 07/08/20 18:02 Chloride 103.0 mmol/L (98-107) 07/08/20 18:02 Carbon Dioxide 20 mmol/L (22-30) L 07/08/20 18:02 Anion Gap 20 mmol/L 07/08/20 18:02 BUN 19 mg/dL (9-20) 07/08/20 18:02 Creatinine 0.7 mg/dL (0.8-1.3) L 07/08/20 18:02 Estimated GFR > 60 ml/min 07/08/20 18:02 BUN/Creatinine Ratio 27 % 07/08/20 18:02 Glucose 124 mg/dL (75-100) H 07/08/20 18:02 POC Glucose 66 mg/dL (70-105) L 07/09/20 07:25 Calcium 7.7 mg/dL (8.4-10.2) L 07/08/20 18:02 Magnesium 2.10 mg/dL (1.7-2.3) 07/08/20 18:02 Total Bilirubin 0.50 mg/dL (0.1-1.2) 07/08/20 18:02 Direct Bilirubin 0.3 mg/dL (0-0.2) H 07/08/20 18:02 Indirect Bilirubin 0.2 mg/dL 07/08/20 18:02 AST 106 units/L (5-40) H 07/08/20 18:02 ALT 20 units/L (7-56) 07/08/20 18:02 Alkaline Phosphatase 775 units/L (35-129) H 07/08/20 18:02 Troponin T 0.078 ng/mL (0.00-0.029) H 07/08/20 21:39 Total Protein 5.3 g/dL (6.3-8.2) L 07/08/20 18:02 Albumin 2.6 g/dL (3.9-5) L 07/08/20 18:02 Albumin/Globulin Ratio 1.0 % 07/08/20 18:02 Triglycerides 98 mg/dL (2-149) 07/08/20 18:02 Cholesterol 136 mg/dL (50-199) 07/08/20 18:02 LDL Cholesterol Direct 52 mg/dL (50-130) 07/08/20 18:02 HDL Cholesterol 60 mg/dL (40-59) H 07/08/20 18:02 Cholesterol/HDL Ratio 2.26 % 07/08/20 18:02 Mccrary/IV: Voiding Method Condom Catheter Active Medications - Current Medications Current Medications: Generic Name Dose Route Start Last Admin Trade Name Freq PRN Reason Stop Dose Admin Acetaminophen 650 mg 07/08/20 22:12 Acetaminophen 325 Mg Tab PO Q4H PRN Pain MILD(1-3)/Fever >100.5/V[place]LE[place]AS Aspirin 325 mg 07/09/20 10:00 07/09/20 10:59 Aspirin Ec 325 Mg Tab PO 325 mg QDAY JAYME Administration Dextrose 0 ml 07/08/20 22:12 Dextrose 50% In Water (25gm) 50 Ml Syringe IV Q30MIN PRN Hypoglycemia Protocol Heparin Sodium (Porcine) 5,000 unit 07/09/20 06:00 07/09/20 06:11 Heparin 5,000 Unit/1 Ml Vial SUB-Q 5,000 unit Q8HR JAYME Administration Sodium Chloride 1,000 mls @ 125 mls/hr 07/08/20 22:15 Nacl 0.9% 1000 Ml IV DIRECT JAYME Insulin Human Lispro 0 unit 07/09/20 07:30 07/09/20 08:16 Insulin Lispro 100 Unit/Ml SUB-Q Not Given ACHS [facility] Protocol Magnesium Hydroxide 30 ml 07/08/20 22:12 Magnesium Hydroxide (Mom) Oral Liqd Udc PO Q4H PRN Constipation Morphine Sulfate 2 mg 07/08/20 22:12 Morphine 4 Mg/1 Ml Inj IV Q5MIN PRN Chest Pain Nitroglycerin 0.4 mg 07/08/20 22:12 Nitroglycerin 0.4 Mg Tab Subl SL Q5M PRN Chest Pain Ondansetron HCl 4 mg 07/08/20 22:12 Ondansetron 4 Mg/2 Ml Inj IV Q8H PRN Nausea And Vomiting Sodium Chloride 10 ml 07/09/20 10:00 07/09/20 10:59 Sodium Chloride 0.9% 10 Ml Flush Syringe IV 10 ml BID JAYME Administration Sodium Chloride 10 ml 07/08/20 22:12 Sodium Chloride 0.9% 10 Ml Flush Syringe IV PRN PRN LINE FLUSH Tramadol HCl 50 mg 07/08/20 22:12 Tramadol 50 Mg Tab PO Q6H PRN Pain, Moderate (4-6) Nutrition/Malnutrition Assess - Dietary Evaluation Nutrition/Malnutrition Findings: Nutrition Notes Start: 07/09/20 10:45 Freq: Status: Active Protocol: Document 07/09/20 10:45 AT (Rec: 07/09/20 10:56 AT [id number]) Co-Sign 07/09/20 10:45 MK Nutrition Notes Initial or Follow up Assessment Current Diagnosis Decubitus(Pressure Ulcer), Diabetes,Hypertension, Hyperlipidemia Other Pertinent Diagnosis Hx of brain/colon CA, Syncope Current Diet Cardiac/Consistent CHO Labs/Tests Hgb 9.3 Cr 0.7 BG 124 Ca 7.2 Pertinent Medications NS at 125 mL/hr Height 5 ft 9 in Weight 49 kg [place] Body Weight (kg) 72.72 BMI 15.9 Weight Status Underweight Is patient on ventilator? No Is Patient Ambulatory and/or Out of Bed No [facility] [phone]
--- NOTE | 2020-07-09 13:30 | Vascular Lab Report ---
DUPLEX DOPPLER ULTRASOUND CAROTID, BILATERAL INDICATION / CLINICAL INFORMATION: Syncope. COMPARISON: None available. FINDINGS: RIGHT CAROTID: - PLAQUE ESTIMATE (%): < 50% - CCA velocity: 59 cm/sec. - ICA peak systolic velocity: 110 cm/sec. - ICA/CCA PSV Ratio: 1.87 Right Vertebral Artery: Antegrade flow. LEFT CAROTID: - PLAQUE ESTIMATE: < 50% - CCA velocity: 54 cm/sec. - ICA peak systolic velocity: 106 cm/sec. - ICA/CCA PSV Ratio: 1.97 Left Vertebral Artery: Antegrade flow. IMPRESSION: 1. Right Internal Carotid Artery: Less than 50% diameter stenosis. 2. Left Internal Carotid Artery: Less than 50% diameter stenosis. Mild plaque is seen in bilateral carotid arteries. Velocity criteria are extrapolated from diameter data as defined by the Society of Radiologists in Ul trasound Consensus Conference, Radiology 2003; 229;340-346. NO STENOSIS (NORMAL) * Plaque = none; ICA PSV < 125 cm/sec; ICA/CCA PSV Ratio < 2.0 <50% STENOSIS * Plaque < 50%; ICA PSV < 125 cm/sec; ICA/CCA PSV Ratio < 2.0 50-69% STENOSIS * Plaque > 50%; ICA PSV = 125-230 cm/sec; ICA/CCA PSV Ratio = 2.0-4.0 >70% BUT <100% STENOSIS * Plaque > 50%; ICA PSV > 230 cm/sec; ICA/CCA PSV Ratio > 4.0 NEAR OCCLUSION * Plaque = visible lumen; ICA PSV = high/low/none; ICA/CCA PSV Ratio = variable TOTAL OCCLUSION * Plaque = no lumen; ICA PSV = none; ICA/CCA PSV Ratio = N/A Signer Name: Francois Ibarra MD Signed: 07/09/2020 1:25 PM Workstation Name: [id number]
[2020-07-09 15:10] LABS: Basophils % (Auto) 0.2 % (0.0-1.8); Hemoglobin 8.8 gm/dl (11.8-15.2); Lymphocytes # (Auto) 0.5 K/mm3 (1.2-5.4); Lymphocytes % (Auto) 7.1 % (13.4-35.0); Mean Corpuscular HGB Conc 33 % (32-34); Mean Corpuscular Volume 84 fl (84-94); Monocytes # (Auto) 0.4 K/mm3 (0.0-0.8); Monocytes % (Auto) 5.4 % (0.0-7.3); Platelet Count 320 K/mm3 (140-440); Red Blood Count 3.21 M/mm3 (3.65-5.03); Red Cell Distribution Width 19.4 % (13.2-15.2)
[2020-07-09 15:29] LABS: INR 1.2 (0.87-1.13)
--- NOTE | 2020-07-09 15:29 | Consultation ---
History of Present Illness Consult date: 07/09/20 Requesting physician: MYRANDA GEE Consult reason: elevated troponin, syncope History of present illness: This patient is an 89-year-old male with a known history of hypertension diabetes, brain tumor with history of seizures and colon cancer. He is previously unknown to our practice. Patient presents from home to [facility] via EMS. Chief complaint of syncope which occurred while he was in the bathroom this afternoon. Patient states to ER physician feels generally weak and occasionally lightheaded. He denies any chest pain shortness of breath nausea vomiting diarrhea abdominal pain, headache or dizziness, hematemesis, BRBPR, recent illness or known exposures. Cardiology is consulted for syncopal episode and elevated troponins. At time of interview, patient is pleasantly confused and thus history is obtained via chart. Past History Past Medical History: anemia, diabetes, hypertension, hyperlipidemia, seizures, other (Brain Tumor, BPH see HPI) Past Surgical History: No surgical history Social history: no significant social history Family history: no significant family history Medications and Allergies Allergies Allergy/AdvReac Type Severity Reaction Status Date / Time No Known Allergies Allergy Verified 04/12/14 05:29 Home Medications Medication Instructions Recorded Confirmed Last Taken Type Losartan [Cozaar] 50 mg PO DAILY 04/12/14 07/09/20 04/27/14 21:30 History Lovastatin [Altoprev] 40 mg PO QHS 04/12/14 07/09/20 04/28/14 22:20 History Tamsulosin [Flomax] 0.4 mg PO DAILY 04/12/14 07/09/20 04/28/14 10:30 History Dexamethasone (Nf) [Decadron (Nf)] 0.5 mg PO Q12HR #60 tablet 04/26/14 07/09/20 04/29/14 08:01 Rx Insulin Glulisine [Apidra] 10 units SUB-Q AC #100 units 04/26/14 07/09/20 04/28/14 22:20 Rx Ipratropium/Albuterol Sulfate 1 ampul IH TIDRT #1 mo 04/26/14 07/09/20 Unknown Rx [DUONEB *Not for PRN Use*] levETIRAcetam [Keppra] 750 mg PO Q12HR #1 bottle 04/26/14 07/09/2004/29/15 07:51 Rx Ferrous Gluconate [Fergon 325 MG 324 mg PO QDAY #30 tablet 10/14/19 07/09/20 Unknown Rx tab] Pantoprazole [Protonix TAB] 40 mg PO BID #30 tablet 10/14/19 07/09/20 04/28/14 10:30 Rx Nitrofurantoin Drew/M-Cryst 100 mg PO Q12HR #14 capsule 06/15/20 07/09/20 Unknown Rx [Macrobid CAP] Active Meds: Active Medications Acetaminophen (Acetaminophen 325 Mg Tab) 650 mg PO Q4H PRN PRN Reason: Pain MILD(1-3)/Fever >100.5/[place] Aspirin (Aspirin Ec 325 Mg Tab) 325 mg PO QDAY [facility] Last Admin: 07/09/20 10:59 Dose: 325 mg Documented by: Dextrose (Dextrose 50% In Water (25gm) 50 Ml Syringe) 0 ml IV Q30MIN PRN; Protocol PRN Reason: Hypoglycemia Heparin Sodium (Porcine) (Heparin 5,000 Unit/1 Ml Vial) 5,000 unit SUB-Q Q8HR [facility] Last Admin: 07/09/20 15:18 Dose: 5,000 unit Documented by: Sodium Chloride (Nacl 0.9% 1000 Ml) 1,000 mls @ 125 mls/hr IV DIRECT [facility] Insulin Human Lispro (Insulin Lispro 100 Unit/Ml) 0 unit SUB-Q ACHS [facility]; Protocol Last Admin: 07/09/20 12:02 Dose: Not Given Documented by: Magnesium Hydroxide (Magnesium Hydroxide (Mom) Oral Liqd Udc) 30 ml PO Q4H PRN PRN Reason: Constipation Morphine Sulfate (Morphine 4 Mg/1 Ml Inj) 2 mg IV Q5MIN PRN PRN Reason: Chest Pain Nitroglycerin (Nitroglycerin 0.4 Mg Tab Subl) 0.4 mg SL Q5M PRN PRN Reason: Chest Pain Ondansetron HCl (Ondansetron 4 Mg/2 Ml Inj) 4 mg IV Q8H PRN PRN Reason: Nausea And Vomiting Sodium Chloride (Sodium Chloride 0.9% 10 Ml Flush Syringe) 10 ml IV BID [facility] Last Admin: 07/09/20 10:59 Dose: 10 ml Documented by: Sodium Chloride (Sodium Chloride 0.9% 10 Ml Flush Syringe) 10 ml IV PRN PRN PRN Reason: LINE FLUSH Tramadol HCl (Tramadol 50 Mg Tab) 50 mg PO Q6H PRN PRN Reason: Pain, Moderate (4-6) Review of Systems ROS unobtainable: due to mental status (Patient is pleasantly confused) Physical Examination Last Vital Signs Temp 97.3 F L 07/09/20 07:23 Pulse 110 H 07/09/20 12:15 Resp 18 07/09/20 07:23 BP 121/58 07/09/20 12:15 Pulse Ox 98 07/09/20 12:15 General appearance: no acute distress HEENT: Positive: Other (Patient is pleasantly confused) Neck: Positive: neck supple, trachea midline Cardiac: Positive: Reg Rate and Rhythm, S1/S2 Lungs: Positive: clear to auscultation, Normal Breath Sounds Neuro: Positive: Other (Pleasantly confused) Abdomen: Positive: Unremarkable Skin: Positive: Wound (Sacral ulcers documented per chart). Negative: Rash Musculoskeletal: No Pain Extremities: Present: upper extr. pulses, lower extr. pulses. Absent: edema Results 07/09/20 14:30 07/08/20 18:02 Cardiac Enzymes 07/08/20 Range/Units 18:02 AST 106 H (5-40) units/L Coagulation 07/08/20 Range/Units 18:02 PT 14.3 (12.2-14.9) Sec. INR 1.12 (0.87-1.13) Lipids 07/08/20 Range/Units 18:02 Triglycerides 98 (2-149) mg/dL Cholesterol 136 (50-199) mg/dL HDL Cholesterol 60 H (40-59) mg/dL Cholesterol/HDL Ratio 2.26 % CBC 07/08/20 07/09/20 Range/Units 18:02 14:30 WBC 7.8 7.3 (4.5-11.0) K/mm3 RBC 3.42 L 3.21 L (3.65-5.03) M/mm3 Hgb 9.3 L 8.8 L (11.8-15.2) gm/dl Hct 29.7 L 27.0 L (35.5-45.6) % Plt Count 332 320 (140-440) K/mm3 Lymph # (Auto) 0.5 L 0.5 L (1.2-5.4) K/mm3 [place] # (Auto) 0.5 0.4 (0.0-0.8) K/mm3 Eos # (Auto) 0.0 0.0 (0.0-0.4) K/mm3 Baso # (Auto) 0.0 0.0 (0.0-0.1) K/mm3 Comprehensive Metabolic Panel 07/08/20 07/08/20 Range/Units 18:02 18:02 Sodium 138 (137-145) mmol/L Potassium 4.6 (3.6-5.0) mmol/L Chloride 103.0 (98-107) mmol/L Carbon Dioxide 20 L (22-30) mmol/L BUN 19 (9-20) mg/dL Creatinine 0.7 L (0.8-1.3) mg/dL Glucose 124 H (75-100) mg/dL Calcium 7.7 L (8.4-10.2) mg/dL Direct Bilirubin 0.3 H (0-0.2) mg/dL Indirect Bilirubin 0.2 mg/dL AST 106 H (5-40) units/L ALT 20 (7-56) units/L Alkaline Phosphatase 775 H (35-129) units/L Total Protein 5.3 L (6.3-8.2) g/dL Albumin 2.6 L (3.9-5) g/dL - Imaging and Cardiology Echo: report reviewed (Echocardiogram reviewed (07/08/2020): LVEF is 65 to 70%. LV SF is normal. Mild concentric left ventricular hypertrophy. RV SF is normal. Well-functioning aortic valve prosthesis present. Mean aortic valve gradient is 8 mmHg, peak aortic valve gradient is 14 mmHg. Mild pulmonary hypertension RVSP) EKG: report reviewed, image reviewed EKG interpretations - Telemetry EKG Rhythm: Sinus Rhythm Assessment and Plan * Elevated troponins * Troponins are elevated x2, subacute and nonspecific. Continue to trend CE's. * Continue aspirin 325 p.o. daily * Syncopal episode * Review of labs show initial POC blood glucose of 66, subsequently normalized. * Orthostatic blood pressures are normal. * Echocardiogram reviewed (07/08/2020): LVEF is 65 to 70%. LV SF is normal. Mild concentric left ventricular hypertrophy. RV SF is normal. Well-functioning aortic valve prosthesis present. Mean aortic valve gradient is 8 mmHg, peak aortic valve gradient is 14 mmHg. Mild pulmonary hypertension RVSP 40 mmHg. * D-Dimer, TSH, carotid ultrasound are pending. * Continue to monitor on telemetry * Anemia in setting of malnutrition * BMI 16. Nutritional consult pending. Management per primary team * DVT prophylaxis * Heparin SQ Will follow This patient was seen in conjunction with Dr Whalen who agrees with this assessment and plan of care - Patient Problems (1) Elevated troponin Current Visit: Yes Status: Acute (2) Syncope Current Visit: Yes Status: Acute (3) Anemia Current Visit: Yes Status: Acute (4) Malnutrition Current Visit: Yes Status: Acute (5) Hypoglycemia Current Visit: Yes Status: Resolved (6) DVT prophylaxis Current Visit: Yes Status: Acute (7) Diabetes mellitus Current Visit: Yes Status: Chronic (8) History of colon cancer Current Visit: Yes Status: Chronic (9) History of brain tumor Current Visit: Yes Status: Chronic (10) Hypertension Current Visit: Yes Status: Chronic Qualifiers: Hypertension type: essential hypertension Qualified Code(s): I10 - Essential (primary) hypertension (11) History of aortic valve replacement with bioprosthetic valve Current Visit: Yes Status: Suspected
[2020-07-09 15:44] LABS: Blood Urea Nitrogen 17 mg/dL (9-20); Calcium 7.6 mg/dL (8.4-10.2); Hemolysis Index 0
[2020-07-09 15:46] LABS: Bilirubin,Urine NEG (Negative); Blood,Urine NEG (Negative); Color,Urine Yellow (Yellow); Mucus,Urine FEW /HPF; RBC,Urine < 1.0 /HPF (0.0-6.0)
[2020-07-09 15:56] LABS: BUN/Creatinine Ratio 34
[2020-07-10 06:21] LABS: Blood Urea Nitrogen 15 mg/dL (9-20); Calcium 7.3 mg/dL (8.4-10.2); Hemolysis Index 3
[2020-07-10 06:24] LABS: BUN/Creatinine Ratio 30
[2020-07-10] MEDS: HEPARIN 5,000 UNIT/1 ML VIAL SUB-Q SCH ×3 (06:37→21:08)
[2020-07-10] MEDS: INSULIN LISPRO 100 UNIT/ML SUB-Q SCH ×3 (08:00→21:09)
--- NOTE | 2020-07-10 09:23 | Progress Note ---
Assessment and Plan Assessment and plan: #Syncopal episode Likely as a result of dehydration versus poor intake with hypoglycemia Orthostatic vitals Echocardiogram-no significant findings that could explain syncopal episode Cardiology on board #Severe malnutrition Nutrition referral Started on appetite stimulants #Generalized weakness Likely as result of above Check pending B12, folate, vitamin D 25 Nutrition referral #Elevated troponin Denies any chest pain Cardiology following Echocardiogram shows no regional wall motion abnormalities #Elevated D-dimer Ultrasound Doppler ordered to rule out DVT #Elevated TSH Check free T4 #DM Lispro sliding scale [low intensity] Monitor blood glucose #BPH Stable #DVT ppx - heparin Disposition - Needs SNF placement History Interval history: 89-year-old -Welsh male with known history of hypertension, diabetes mellitus, brain tumor with history of seizures and colon cancer was brought into the emergency room by EMS today for evaluation of syncope which occurred while he was in the bathroom this afternoon. Patient states that he just feels generally weak. He denies any fever or chills, no chest pain or shortness of breath, no nausea vomiting and no diarrhea. Denies any headache or dizziness, no hematemesis, no bright red blood per rectum, no melena. However patient feels lightheaded occasionally. There has been no history of any sick contacts or recent travel. There is no contact with anyone with COVID-19. Work-up in the emergency room today, EKG, chest x-ray, CT scan of the head were unremarkable. However there was an elevation of his troponin level. Hemoglobin and hematocrit were 9.3 and 29.7 respectively. Urinalysis is being awaited. Patient has been admitted for syncope with an accompanying elevation of troponin level. Hospital course 07/09. Has no complaints this morning. Looks weak. BMI 16. Nutrition referral. Echo pending. Will check orthostatic vitals.Cardiology to see. 07/10. Discussed with patient's daughter this AM. She mentions that patient has been having poor appetite for about a month now. Has chronic weight loss 2. Nutrition referral pending. Echocardiogram shows normal EF with no significant aortic stenosis, mitral valve prolapse or hypertrophic myopathy. Orthostatic vitals negative. Etiology of syncopal episode likely vasovagal from dehydration due to poor intake. Ordered vitamin B12, folate and vitamin D level to evaluate for generalized weakness. Elevated D-dimer noted-ultrasound Doppler also ordered [doubt PE as an etiology of syncopal episode]. PT recommends placement to custodial facility Hospitalist Physical - Physical exam Narrative exam: VITAL SIGNS: Reviewed. GENERAL: Awake, cachectic HEAD: No signs of head trauma. Temporal wasting+ EYES: Pupils are equal. Extraocular motions intact. MOUTH: Oropharynx is normal. NECK: No adenopathy, no JVD. CHEST: Chest with diminished breath sounds bilaterally. No wheezes, rales, or rhonchi. CARDIAC: normal S1 and S2, without murmurs, gallops, or rubs. ABDOMEN: Soft, scaphoid abdomen. MUSCULOSKELETAL: No edema NEUROLOGIC EXAM: Awake and responds to commands SKIN: No obvious lesions - Constitutional Vitals: Temp Pulse Resp BP Pulse Ox 97.5 F L 101 H 18 104/49 100 07/10/20 07:45 07/10/20 07:45 07/10/20 07:45 07/10/20 07:45 07/10/20 07:45 HEART Score - HEART Score EKG: Normal Age: > 65 Risk factors: 1-2 risk factors Troponin: Troponin T 0.076 ng/mL (0.00-0.029) H 07/10/20 05:37 Troponin: 1-3x normal limit Results - Labs CBC & Chem 7: 07/09/20 14:30 07/10/20 05:37 Labs: Laboratory Last Values WBC 7.3 K/mm3 (4.5-11.0) 07/09/20 14:30 RBC 3.21 M/mm3 (3.65-5.03) L 07/09/20 14:30 Hgb 8.8 gm/dl (11.8-15.2) L 07/09/20 14:30 Hct 27.0 % (35.5-45.6) L 07/09/20 14:30 MCV 84 fl (84-94) 07/09/20 14:30 MCH 27 pg (28-32) L 07/09/20 14:30 MCHC 33 % (32-34) 07/09/20 14:30 RDW 19.4 % (13.2-15.2) H 07/09/20 14:30 Plt Count 320 K/mm3 (140-440) 07/09/20 14:30 Lymph % (Auto) 7.1 % (13.4-35.0) L 07/09/20 14:30 [place] % (Auto) 5.4 % (0.0-7.3) 07/09/20 14:30 Eos % (Auto) 0.0 % (0.0-4.3) 07/09/20 14:30 Baso % (Auto) 0.2 % (0.0-1.8) 07/09/20 14:30 Lymph # (Auto) 0.5 K/mm3 (1.2-5.4) L 07/09/20 14:30 [place] # (Auto) 0.4 K/mm3 (0.0-0.8) 07/09/20 14:30 Eos # (Auto) 0.0 K/mm3 (0.0-0.4) 07/09/20 14:30 Baso # (Auto) 0.0 K/mm3 (0.0-0.1) 07/09/20 14:30 Seg Neutrophils % 87.3 % (40.0-70.0) H 07/09/20 14:30 Seg Neutrophils # 6.3 K/mm3 (1.8-7.7) 07/09/20 14:30 PT 15.2 Sec. (12.2-14.9) H 07/09/20 14:30 INR 1.20 (0.87-1.13) H 07/09/20 14:30 D-Dimer 1615.19 ng/mlDDU (0-234) H 07/10/20 05:37 Sodium 142 mmol/L (137-145) 07/10/20 05:37 Potassium 3.9 mmol/L (3.6-5.0) 07/10/20 05:37 Chloride 108.3 mmol/L (98-107) H 07/10/20 05:37 Carbon Dioxide 21 mmol/L (22-30) L 07/10/20 05:37 Anion Gap 17 mmol/L 07/10/20 05:37 BUN 15 mg/dL (9-20) 07/10/20 05:37 Creatinine 0.5 mg/dL (0.8-1.3) L 07/10/20 05:37 Estimated GFR > 60 ml/min 07/10/20 05:37 BUN/Creatinine Ratio 30 % 07/10/20 05:37 Glucose 67 mg/dL (75-100) L 07/10/20 05:37 POC Glucose 90 mg/dL (70-105) 07/09/20 20:27 Calcium 7.3 mg/dL (8.4-10.2) L 07/10/20 05:37 Magnesium 2.10 mg/dL (1.7-2.3) 07/08/20 18:02 Total Bilirubin 0.50 mg/dL (0.1-1.2) 07/08/20 18:02 Direct Bilirubin 0.3 mg/dL (0-0.2) H 07/08/20 18:02 Indirect Bilirubin 0.2 mg/dL 07/08/20 18:02 AST 106 units/L (5-40) H 07/08/20 18:02 ALT 20 units/L (7-56) 07/08/20 18:02 Alkaline Phosphatase 775 units/L (35-129) H 07/08/20 18:02 Troponin T 0.076 ng/mL (0.00-0.029) H 07/10/20 05:37 Total Protein 5.3 g/dL (6.3-8.2) L 07/08/20 18:02 Albumin 2.6 g/dL (3.9-5) L 07/08/20 18:02 Albumin/Globulin Ratio 1.0 % 07/08/20 18:02 Triglycerides 98 mg/dL (2-149) 07/08/20 18:02 Cholesterol 136 mg/dL (50-199) 07/08/20 18:02 LDL Cholesterol Direct 52 mg/dL (50-130) 07/08/20 18:02 HDL Cholesterol 60 mg/dL (40-59) H 07/08/20 18:02 Cholesterol/HDL Ratio 2.26 % 07/08/20 18:02 TSH 8.880 mlU/mL (0.270-4.200) H 07/10/20 05:37 Urine Color Yellow (Yellow) 07/09/20 15:38 Urine Turbidity Clear (Clear) 07/09/20 15:38 Urine pH 5.0 (5.0-7.0) 07/09/20 15:38 Ur Specific [place] 1.018 (1.003-1.030) 07/09/20 15:38 Urine Protein 30 mg/dl mg/dL (Negative) 07/09/20 15:38 Urine Glucose (UA) Neg mg/dL (Negative) 07/09/20 15:38 Urine Ketones Tr mg/dL (Negative) 07/09/20 15:38 Urine Blood Neg (Negative) 07/09/20 15:38 Urine Nitrite Neg (Negative) 07/09/20 15:38 Urine Bilirubin Neg (Negative) 07/09/20 15:38 Urine Urobilinogen 4.0 mg/dL (<2.0) 07/09/20 15:38 Ur Leukocyte Esterase Neg (Negative) 07/09/20 15:38 Urine WBC (Auto) 1.0 /HPF (0.0-6.0) 07/09/20 15:38 Urine RBC (Auto) < 1.0 /HPF (0.0-6.0) 07/09/20 15:38 Urine Mucus Few /HPF 07/09/20 15:38 Mccrary/IV: Voiding Method Condom Catheter Active Medications - Current Medications Current Medications: Generic Name Dose Route Start Last Admin Trade Name Freq PRN Reason Stop Dose Admin Acetaminophen 650 mg 07/08/20 22:12 Acetaminophen 325 Mg Tab PO Q4H PRN Pain MILD(1-3)/Fever >100.5/[place] Aspirin 325 mg 07/09/20 10:00 07/09/20 10:59 Aspirin Ec 325 Mg Tab PO 325 mg QDAY JAYME Administration Dextrose 0 ml 07/08/20 22:12 Dextrose 50% In Water (25gm) 50 Ml Syringe IV Q30MIN PRN Hypoglycemia Protocol Heparin Sodium (Porcine) 5,000 unit 07/09/20 06:00 07/10/20 06:37 Heparin 5,000 Unit/1 Ml Vial SUB-Q 5,000 unit Q8HR JAYME Administration Sodium Chloride 1,000 mls @ 125 mls/hr 07/08/20 22:15 Nacl 0.9% 1000 Ml IV DIRECT JAYME Insulin Human Lispro 0 unit 07/09/20 07:30 07/09/20 21:51 Insulin Lispro 100 Unit/Ml SUB-Q Not Given ACHS [facility] Protocol Magnesium Hydroxide 30 ml 07/08/20 22:12 Magnesium Hydroxide (Mom) Oral Liqd Udc PO Q4H PRN Constipation Metoprolol Tartrate 12.5 mg 07/10/20 10:00 Metoprolol Tartrate 25 Mg Tab PO BID JAYME Morphine Sulfate 2 mg 07/08/20 22:12 Morphine 4 Mg/1 Ml Inj IV Q5MIN PRN Chest Pain Nitroglycerin 0.4 mg 07/08/20 22:12 Nitroglycerin 0.4 Mg Tab Subl SL Q5M PRN Chest Pain Ondansetron HCl 4 mg 07/08/20 22:12 Ondansetron 4 Mg/2 Ml Inj IV Q8H PRN Nausea And Vomiting Sodium Chloride 10 ml 07/09/20 10:00 07/09/20 21:51 Sodium Chloride 0.9% 10 Ml Flush Syringe IV 10 ml BID JAYME Administration Sodium Chloride 10 ml 07/08/20 22:12 Sodium Chloride 0.9% 10 Ml Flush Syringe IV PRN PRN LINE FLUSH Tramadol HCl 50 mg 07/08/20 22:12 Tramadol 50 Mg Tab PO Q6H PRN Pain, Moderate (4-6) Nutrition/Malnutrition Assess - Dietary Evaluation Nutrition/Malnutrition Findings: Nutrition Notes Start: 07/09/20 10:45 Freq: Status: Active Protocol: Document 07/09/20 13:45 (Rec: 07/09/20 13:57 [id number]) Nutrition Notes Need for Assessment generated from: MD Order,Low BMI Initial or Follow up Assessment Current Diagnosis Decubitus(Pressure Ulcer), Diabetes,Hypertension, Hyperlipidemia Other Pertinent Diagnosis Hx of brain/colon CA, Syncope Current Diet mech soft with nectar thickened liquids Labs/Tests Reviewed Pertinent Medications Reviewed Height 5 ft 9 in Weight 49 kg Usual Body Weight 58.513 kg [place] Body Weight (kg) 72.72 BMI 15.9 Weight change and time frame Per chart, 16% wt loss in two months Weight Status Underweight Subjective/Other Information MD order for diet education. Pt not appropriate for diet education. Screen for low BMI. 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 Pt with severe muscle and fat wasting . Pt reports not eating breakfast and had a bite of lunch. Pt likely unable to meet needs orally and will need alternative method of nutrition if pt and/or family desires. Pt with pressure ulcers on coccyx. Burn Absent Trauma Absent GI Symptoms None Current % PO Negligible Minimum of two criteria Yes Energy Intake (non-severe) <75% Estimated Energy Requirement >7 days Interpretation of Weight Loss (severe) >5% in 1 month Body Fat Depletion Moderate depletion (severe) Muscle Mass Moderate Depletion (severe) #1 Nutrition Diagnosis Malnutrition Etiology advanced age, acute and chronic disease As Evidenced by Signs and Symptoms <75% of EER for > or = to 7 days, 16% wt loss in 2 months, muscle and fat wasting Is patient on ventilator? No Is Patient Ambulatory and/or Out of Bed No REE-([facility]-confined to bed) 1382.412 Calculation Used for Recommendations [facility] Additional Notes Protein: (1.2-1.5 g/kg) 59-74g Fluid: 1 ml/kcal or per MD Nutrition Intervention Change Diet Order: Continue Add Supplement/Snack (indicate name/kcal Nepro TID /protein ) Provides kCal: 1,275 Provides Protein (gm) 57 Goal #1 Meet at least 75% of protein and energy needs via PO and ONS intakes Goal #2 Weight gain/maintenance Anticipated Discharge Needs: Mech soft with nectar thickened liquids and ONS daily Follow-Up By: 07/11/20 Additional Comments FU for intakes and ONS tolerance
[2020-07-10] MEDS ORDERED: METOPROLOL TARTRATE 25 MG TAB PO SCH (10:00)
--- NOTE | 2020-07-10 12:03 | Vascular Lab Report ---
DUPLEX DOPPLER LOWER EXTREMITY VEINS, BILATERAL INDICATION / CLINICAL INFORMATION: DVT. Colon cancer, diabetes, hypertension. TECHNIQUE: Duplex doppler imaging was performed through the veins of both lower extremities using venous mendoza adriel and other maneuvers. COMPARISON: None available. FINDINGS: RIGHT COMMON FEMORAL VEIN: Negative. RIGHT FEMORAL VEIN: Negative. RIGHT POPLITEAL VEIN: Negative. RIGHT CALF VEINS: Negative. LEFT COMMON FEMORAL VEIN: Negative. LEFT FEMORAL VEIN: Negative. LEFT POPLITEAL VEIN: Negative. LEFT CALF VEINS: Negative. ADDITIONAL FINDINGS: None. IMPRESSION: 1. No sonographic evidence for DVT in either lower extremity. Signer Name: Campos Hernández MD Signed: 07/10/2020 11:58 AM Workstation Name: [id number]
[2020-07-10] MEDS: MEGESTROL 400 MG/10 ML ORAL LIQD PO SCH (12:19)
[2020-07-10] MEDS: ASPIRIN EC 325 MG TAB PO SCH (12:47)
--- NOTE | 2020-07-10 13:24 | Progress Note ---
Assessment and Plan Telemetry reviewed: Sinus tach 110. Paroxysmal atrial tach rate 200 noted overnight. 3 beat V. tach noted overnight. * Elevated troponins * Troponins are elevated x3, subacute and nonspecific. Continue to trend CE's. Continue aspirin 325 p.o. daily * Considering current mental state and comorbidities, will plan for conservative cardiac management. * Nonsustained SVT * Optimize rate control. Initiate metoprolol 25 mg every 6 hour. Continue to monitor on telemetry * Syncopal episode * Review of labs show initial POC blood glucose of 66, subsequently normalized. * Orthostatic blood pressures are normal. * Echocardiogram reviewed (07/08/2020): LVEF is 65 to 70%. LV SF is normal. Mild concentric left ventricular hypertrophy. RV SF is normal. Well- functioning aortic valve prosthesis present. Mean aortic valve gradient is 8 mmHg, peak aortic valve gradient is 14 mmHg. Mild pulmonary hypertension RVSP 40 mmHg. * D-Dimer, TSH, carotid ultrasound are pending. * Continue to monitor on telemetry * Anemia in setting of malnutrition * BMI 16. Nutritional consult pending. Management per primary team * Hypothyroid * TSH is elevated. Free T4 is pending * Elevated D-dimer * BLE duplex ultrasound is pending * DVT prophylaxis * Heparin SQ Will follow This patient was seen in conjunction with Dr Whalen who agrees with this assessment and plan of care - Patient Problems (1) Elevated troponin Current Visit: Yes Status: Acute (2) Syncope Current Visit: Yes Status: Acute (3) Anemia Current Visit: Yes Status: Acute (4) Malnutrition Current Visit: Yes Status: Acute (5) Hypoglycemia Current Visit: Yes Status: Resolved (6) DVT prophylaxis Current Visit: Yes Status: Acute (7) Diabetes mellitus Current Visit: Yes Status: Chronic (8) History of colon cancer Current Visit: Yes Status: Chronic (9) History of brain tumor Current Visit: Yes Status: Chronic (10) Hypertension Current Visit: Yes Status: Chronic Qualifiers: Hypertension type: essential hypertension Qualified Code(s): I10 - Essential (primary) hypertension (11) History of aortic valve replacement with bioprosthetic valve Current Visit: Yes Status: Suspected (12) Hypothyroidism Current Visit: Yes Status: Acute (13) Weakness Current Visit: Yes Status: Acute (14) DVT prophylaxis Current Visit: No Status: Acute Subjective Date of service: 07/10/20 Interval history: Patient resting in bed. Altered mental status, pleasantly confused Telemetry reviewed: Sinus tach 110. Paroxysmal atrial tach rate 200 overnight. Episode of 3 beat V. tach noted overnight. Objective Last Vital Signs Temp 97.5 F L 07/10/20 07:45 Pulse 115 H 07/10/20 12:36 Resp 18 07/10/20 07:45 BP 104/49 07/10/20 07:45 Pulse Ox 100 07/10/20 07:45 - Physical Examination General: Other (Altered mental status, confused) HEENT: Positive: Normocephaly, Mucus Membranes Moist, Other (Patient is pleasantly confused) Neck: Positive: neck supple, trachea midline Cardiac: Positive: Regular Rhythm, S1/S2 Lungs: Positive: clear to auscultation, Normal Breath Sounds Neuro: Positive: Other (Altered mental status, confused) Abdomen: Positive: Unremarkable Skin: Positive: Wound (Sacral ulcers documented per chart). Negative: Rash Musculoskeletal: No Pain Extremities: Present: upper extr. pulses, lower extr. pulses. Absent: edema - Labs and Meds Coagulation 07/09/20 Range/Units 14:30 PT 15.2 H (12.2-14.9) Sec. INR 1.20 H (0.87-1.13) CBC 07/09/20 Range/Units 14:30 WBC 7.3 (4.5-11.0) K/mm3 RBC 3.21 L (3.65-5.03) M/mm3 Hgb 8.8 L (11.8-15.2) gm/dl Hct 27.0 L (35.5-45.6) % Plt Count 320 (140-440) K/mm3 Lymph # (Auto) 0.5 L (1.2-5.4) K/mm3 [place] # (Auto) 0.4 (0.0-0.8) K/mm3 Eos # (Auto) 0.0 (0.0-0.4) K/mm3 Baso # (Auto) 0.0 (0.0-0.1) K/mm3 Comprehensive Metabolic Panel 07/09/20 07/10/20 Range/Units 14:30 05:37 Sodium 139 142 (137-145) mmol/L Potassium 4.1 3.9 (3.6-5.0) mmol/L Chloride 105.7 108.3 H (98-107) mmol/L Carbon Dioxide 20 L 21 L (22-30) mmol/L BUN 17 15 (9-20) mg/dL Creatinine 0.5 L 0.5 L (0.8-1.3) mg/dL Glucose 112 H 67 L (75-100) mg/dL Calcium 7.6 L 7.3 L (8.4-10.2) mg/dL - Imaging and Cardiology EKG: report reviewed, image reviewed Echo: report reviewed (Echocardiogram reviewed (07/08/2020): LVEF is 65 to 70%. LV SF is normal. Mild concentric left ventricular hypertrophy. RV SF is normal. Well-functioning aortic valve prosthesis present. Mean aortic valve gradient is 8 mmHg, peak aortic valve gradient is 14 mmHg. Mild pulmonary hypertension RVSP) - Telemetry EKG Rhythm: Sinus Tachycardia - EKG Sinus rhythms and dysrhythmias: sinus tachycardia
--- NOTE | 2020-07-10 17:44 | Electrocardiograph Report ---
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
--- NOTE | 2020-07-10 17:57 | Electrocardiograph Report ---
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
[2020-07-11] MEDS: METOPROLOL TARTRATE 25 MG TAB PO SCH ×2 (00:15→05:38)
[2020-07-11] MEDS: HEPARIN 5,000 UNIT/1 ML VIAL SUB-Q SCH ×3 (05:36→21:25)
[2020-07-11] MEDS ORDERED: HYDROcodone/ACETAMINOPHEN 5-325 MG TAB PO PRN (08:00)
[2020-07-11] MEDS: INSULIN LISPRO 100 UNIT/ML SUB-Q SCH ×4 (09:17→23:11)
[2020-07-11] MEDS ORDERED: SODIUM CHLORIDE 0.9% 1000 ML 1,000 ML IV ONE (10:00)
[2020-07-11] MEDS: ASPIRIN EC 325 MG TAB PO SCH (12:19)
[2020-07-11] MEDS: FOLIC ACID 1 MG TAB PO SCH (12:19)
[2020-07-11] MEDS: MEGESTROL 400 MG/10 ML ORAL LIQD PO SCH (12:20)
[2020-07-11] MEDS: levETIRAcetam 500 MG/5 ML ORAL LIQD PO SCH ×2 (12:21→21:25)
--- NOTE | 2020-07-11 12:22 | Progress Note ---
Assessment and Plan Telemetry reviewed: Sinus rhythm 79. No events * Elevated troponins * Troponins are elevated x3, subacute and nonspecific. Suspect supply/demand mismatch continue to trend CE's. Continue aspirin 325 p.o. daily * Considering current mental state and comorbidities, will plan for conservative cardiac management. * Nonsustained SVT * Review of telemetry showed several episodes of SVT/atrial tach with rates of 180 to 200 bpm. Also single episode of V. tach approximately 13 beats. Currently in sinus rhythm. Continue rate control regimen: metoprolol 25 mg every 6 hour. Continue to monitor on telemetry * Syncopal episode * Review of labs show initial POC blood glucose of 66, subsequently normalized. * Orthostatic blood pressures are normal. * Echocardiogram reviewed (07/08/2020): LVEF is 65 to 70%. LV SF is normal. Mild concentric left ventricular hypertrophy. RV SF is normal. Well- functioning aortic valve prosthesis present. Mean aortic valve gradient is 8 mmHg, peak aortic valve gradient is 14 mmHg. Mild pulmonary hypertension RVSP 40 mmHg. * Carotid ultrasound shows no obstructive pathology * Anemia in setting of malnutrition * BMI 16. Management per primary team * Hypothyroid, subacute * TSH is elevated. Free T4 is normal * Elevated D-dimer * Duplex ultrasound of the bilateral lower extremity showed no thromb us/occlusion * DVT prophylaxis * Heparin SQ Will follow This patient was seen in conjunction with Dr Whalen who agrees with this assessment and plan of care - Patient Problems (1) Elevated troponin Current Visit: Yes Status: Acute (2) Syncope Current Visit: Yes Status: Acute (3) Anemia Current Visit: Yes Status: Acute (4) Malnutrition Current Visit: Yes Status: Acute (5) Hypoglycemia Current Visit: Yes Status: Resolved (6) DVT prophylaxis Current Visit: Yes Status: Acute (7) Diabetes mellitus Current Visit: Yes Status: Chronic (8) History of colon cancer Current Visit: Yes Status: Chronic (9) History of brain tumor Current Visit: Yes Status: Chronic (10) Hypertension Current Visit: Yes Status: Chronic Qualifiers: Hypertension type: essential hypertension Qualified Code(s): I10 - Essential (primary) hypertension (11) History of aortic valve replacement with bioprosthetic valve Current Visit: Yes Status: Suspected (12) Hypothyroidism Current Visit: Yes Status: Acute (13) Weakness Current Visit: Yes Status: Acute (14) DVT prophylaxis Current Visit: No Status: Acute Subjective Date of service: 07/11/20 Principal diagnosis: Syncope Interval history: Patient resting in bed. Altered mental status, pleasantly confused Telemetry reviewed: Sinus rhythm 79. No events Objective Last Vital Signs Temp 97.7 F 07/11/20 03:56 Pulse 100 H 07/11/20 08:00 Resp 22 07/11/20 08:00 BP 90/50 07/11/20 08:00 Pulse Ox 51 L 07/11/20 03:56 - Physical Examination General: Other (Altered mental status, confused) HEENT: Positive: Normocephaly, Mucus Membranes Moist, Other (Patient is pleasantly confused) Neck: Positive: neck supple, trachea midline Cardiac: Positive: Reg Rate and Rhythm, S1/S2 Lungs: Positive: clear to auscultation, Normal Breath Sounds Neuro: Positive: Other (Altered mental status, confused) Abdomen: Positive: Unremarkable Skin: Positive: Wound (Sacral ulcers documented per chart). Negative: Rash Musculoskeletal: No Pain Extremities: Present: upper extr. pulses, lower extr. pulses. Absent: edema - Imaging and Cardiology EKG: report reviewed, image reviewed Echo: report reviewed (Echocardiogram reviewed (07/08/2020): LVEF is 65 to 70%. LV SF is normal. Mild concentric left ventricular hypertrophy. RV SF is normal. Well-functioning aortic valve prosthesis present. Mean aortic valve gradient is 8 mmHg, peak aortic valve gradient is 14 mmHg. Mild pulmonary hypertension RVSP) - Telemetry EKG Rhythm: Sinus Rhythm - EKG Sinus rhythms and dysrhythmias: sinus tachycardia
--- NOTE | 2020-07-11 13:07 | Progress Note ---
Subjective Date of service: 07/11/20 Principal diagnosis: Syncope Interval history: #Syncopal episode-rule out vasovagal versus hypoglycemia Likely as a result of dehydration versus poor intake with hypoglycemia Echocardiogram-no significant findings that could explain syncopal episode Cardiology on board #Severe malnutrition/weight loss Nutrition referral Started on appetite stimulants Not a candidate for GI work-up #Generalized weakness Likely as result of above B12 is in the normal range, folate, is borderline low Folate supplements ordered Nutrition referral #Elevated troponin Denies any chest pain Cardiology following Echocardiogram shows no regional wall motion abnormalities Medical management per review of cardiology note #Elevated D-dimer Lower extremity venous Doppler is negative for DVT Cardiology note reviewed #Elevated TSH Start on low-dose Synthroid #DM Lispro sliding scale [low intensity] Monitor blood glucose #BPH Stable #DVT ppx - heparin Disposition - Needs SNF placement/family refused SNF placement. Possible discharge home tomorrow History Interval history: 89-year-old -[place] male with known history of hypertension, diabetes mellitus, brain tumor with history of seizures and colon cancer was brought into the emergency room by EMS today for evaluation of syncope which occurred while he was in the bathroom this afternoon. Patient states that he just feels generally weak. He denies any fever or chills, no chest pain or shortness of breath, no nausea vomiting and no diarrhea. Denies any headache or dizziness, no hematemesis, no bright red blood per rectum, no melena. However patient feels lightheaded occasionally. There has been no history of any sick contacts or recent travel. There is no contact with anyone with COVID-19. Work-up in the emergency room today, EKG, chest x-ray, CT scan of the head were unremarkable. However there was an elevation of his troponin level. Hemoglobin and hematocrit were 9.3 and 29.7 respectively. Urinalysis is being awaited. Patient has been admitted for syncope with an accompanying elevation of troponin level. Hospital course 07/09. Has no complaints this morning. Looks weak. BMI 16. Nutrition referral. Echo pending. Will check orthostatic vitals.Cardiology to see. 07/10. Discussed with patient's daughter this AM. She mentions that patient has been having poor appetite for about a month now. Has chronic weight loss 2. Nutrition referral pending. Echocardiogram shows normal EF with no significant aortic stenosis, mitral valve prolapse or hypertrophic myopathy. Orthostatic vitals negative. Etiology of syncopal episode likely vasovagal from dehydration due to poor intake. Ordered vitamin B12, folate and vitamin D level to evaluate for generalized weakness. Elevated D-dimer noted-ultrasound Doppler also ordered [doubt PE as an etiology of syncopal episode]. PT recommends placement to snf facility 07/11 patient is awake and alert, not in any distress, he offers no specific complaints, eating poorly needs, needs assistance with feeding and ADLs Patient was hypotensive this morning, blood pressure improved with bolus with IV normal saline. Family updated. Possible discharge tomorrow Objective - Constitutional Vitals: Vital Signs - 12hr 07/11/20 07/11/20 07/11/20 03:56 05:38 08:00 Temperature 97.7 F Pulse Rate 108 H 108 H 100 H Respiratory 18 22 Rate Blood Pressure 115/47 Blood Pressure 90/50 [Right] O2 Sat by Pulse 51 L Oximetry 07/11/20 12:06 Temperature Pulse Rate 45 L Respiratory Rate Blood Pressure 100/40 Blood Pressure [Right] O2 Sat by Pulse 80 L Oximetry General appearance: Present: no acute distress, cachectic - EENT Eyes: PERRL, EOM intact ENT: hearing intact - Neck Neck: supple, normal ROM, no masses or JVD - Respiratory Respiratory effort: normal Respiratory: bilateral: CTA, diminished - Cardiovascular Rhythm: regular Heart Sounds: Present: S1 & S2 Extremities: No edema - Gastrointestinal General gastrointestinal: Present: soft, non-tender Rectal Exam: deferred - Genitourinary Male genitourinary: deferred - Integumentary Integumentary: clear - Musculoskeletal Musculoskeletal: generalized weakness - Neurologic Neurologic: no focal deficits, moves all extremities - Psychiatric Psychiatric: appropriate mood/affect - Labs CBC & Chem 7: 07/09/20 14:30 07/10/20 05:37 Labs: Abnormal lab results 07/10/20 07/10/20 07/10/20 Range/Units 15:38 15:38 16:09 POC Glucose 164 H (70-105) mg/dL Vitamin B12 2000 H (211-911) pg/mL Folate 5.66 L (7.3-26.0) ng/mL 07/10/20 Range/Units 20:49 POC Glucose 140 H (70-105) mg/dL Vitamin B12 (211-911) pg/mL Folate (7.3-26.0) ng/mL HEART Score - HEART Score EKG: Normal Age: > 65 Risk factors: 1-2 risk factors Troponin: Troponin T 0.076 ng/mL (0.00-0.029) H 07/10/20 05:37 Troponin: 1-3x normal limit
[2020-07-11] MEDS ORDERED: METOPROLOL TARTRATE 5 MG/5 ML INJ IV ONE (23:08)
[2020-07-12] MEDS ORDERED: LEVOTHYROXINE 150 MCG TAB PO SCH (06:00)
[2020-07-12] MEDS: HEPARIN 5,000 UNIT/1 ML VIAL SUB-Q SCH ×3 (06:25→21:34)
[2020-07-12] MEDS: LEVOTHYROXINE 25 MCG TAB PO SCH (06:25)
[2020-07-12] MEDS: INSULIN LISPRO 100 UNIT/ML SUB-Q SCH ×4 (09:23→21:36)
[2020-07-12] MEDS: D5W/0.9% NACL 1,000 ML IV SCH (09:34)
[2020-07-12] MEDS: FOLIC ACID 1 MG TAB PO SCH (09:39)
[2020-07-12] MEDS: ASPIRIN EC 325 MG TAB PO SCH (09:39)
[2020-07-12] MEDS: levETIRAcetam 500 MG/5 ML ORAL LIQD PO SCH ×2 (09:39→21:34)
[2020-07-12] MEDS: MEGESTROL 400 MG/10 ML ORAL LIQD PO SCH (09:52)
--- NOTE | 2020-07-12 10:36 | Progress Note ---
Subjective Date of service: 07/12/20 Principal diagnosis: Syncope Interval history: #Syncopal episode-rule out vasovagal versus hypoglycemia Likely as a result of dehydration versus poor intake with hypoglycemia Echocardiogram-no significant findings that could explain syncopal episode Cardiology on board #Severe malnutrition/weight loss Nutrition referral Started on appetite stimulants Not a candidate for GI work-up Hypoxia Patient is on 5 L via nasal cannula with O2 saturation of 100% We will decrease the oxygen to 3 L and monitor oxygen saturation #Generalized weakness Likely as result of above B12 is in the normal range, folate, is borderline low Folate supplements ordered Nutrition referral #Elevated troponin Denies any chest pain Cardiology following Echocardiogram shows no regional wall motion abnormalities Medical management per review of cardiology note #Elevated D-dimer Lower extremity venous Doppler is negative for DVT Cardiology note reviewed #Elevated TSH Start on low-dose Synthroid #DM Lispro sliding scale [low intensity] Monitor blood glucose #BPH Stable #DVT ppx - heparin Disposition - Needs SNF placement/family refused SNF placement. History Interval history: 89-year-old -[place] male with known history of hypertension, diabetes mellitus, brain tumor with history of seizures and colon cancer was brought into the emergency room by EMS today for evaluation of syncope which occurred while he was in the bathroom this afternoon. Patient states that he just feels generally weak. He denies any fever or chills, no chest pain or shortness of breath, no nausea vomiting and no diarrhea. Denies any headache or dizziness, no hematemesis, no bright red blood per rectum, no melena. However patient feels lightheaded occasionally. There has been no history of any sick contacts or recent travel. There is no contact with anyone with COVID-19. Work-up in the emergency room today, EKG, chest x-ray, CT scan of the head were unremarkable. However there was an elevation of his troponin level. Hemoglobin and hematocrit were 9.3 and 29.7 respectively. Urinalysis is being awaited. Patient has been admitted for syncope with an accompanying elevation of troponin level. Hospital course 07/09. Has no complaints this morning. Looks weak. BMI 16. Nutrition referral. Echo pending. Will check orthostatic vitals.Cardiology to see. 07/10. Discussed with patient's daughter this AM. She mentions that patient has been having poor appetite for about a month now. Has chronic weight loss 2. Nutrition referral pending. Echocardiogram shows normal EF with no significant aortic stenosis, mitral valve prolapse or hypertrophic myopathy. Orthostatic vitals negative. Etiology of syncopal episode likely vasovagal from dehydration due to poor intake. Ordered vitamin B12, folate and vitamin D level to evaluate for generalized weakness. Elevated D-dimer noted-ultrasound Doppler also ordered [doubt PE as an etiology of syncopal episode]. [facility] 07/11 patient is awake and alert, not in any distress, he offers no specific complaints, eating poorly needs, needs assistance with feeding and ADLs Patient was hypotensive this morning, blood pressure improved with bolus with IV normal saline. Family updated. Possible discharge tomorrow 07/12 patient is lethargic, does not answer questions but is awake, looks chronically ill, eating very poorly, will start on IV fluids. I left a message with the patient's daughter regarding her views on code status and possible feeding tube placement if she prefers full code Objective - Constitutional Vitals: Vital Signs - 12hr 07/11/20 07/11/20 07/11/20 23:11 23:51 23:52 Temperature 98.9 F 98.9 F Pulse Rate 131 H 77 Respiratory 20 20 Rate Blood Pressure 86/40 105/51 O2 Sat by Pulse 96 Oximetry 07/12/20 07/12/20 07/12/20 00:00 00:27 04:30 Temperature 97.6 F Pulse Rate 121 H 114 H Respiratory 18 Rate Blood Pressure 105/43 O2 Sat by Pulse Oximetry 07/12/20 07/12/20 04:37 07:54 Temperature 97.6 F Pulse Rate 91 H 113 H Respiratory 18 Rate Blood Pressure 96/39 O2 Sat by Pulse 93 99 Oximetry - Labs CBC & Chem 7: 07/09/20 14:30 07/10/20 05:37 Labs: Abnormal lab results 07/11/20 Range/Units 21:49 POC Glucose 110 H (70-105) mg/dL HEART Score - HEART Score EKG: Normal Age: > 65 Risk factors: 1-2 risk factors Troponin: Troponin T 0.076 ng/mL (0.00-0.029) H 07/10/20 05:37 Troponin: 1-3x normal limit
[2020-07-12] MEDS ORDERED: METOPROLOL TARTRATE 25 MG TAB PO SCH (22:00)
--- NOTE | 2020-07-12 23:27 | Progress Note ---
Assessment and Plan Would not recommend chest CTA for confirmatory testing of possible PE unless family decides to consider feeding tube placement, as benefit would be minimal and clinical suspicion of PE is relatively low under the current circumstances. Suspect sinus tachycardia is more likely physiologic. Agree with IV fluids. May consider Midodrine if hypotension persists. Continue other supportive measures. Pt seen in conjunction with Dr. Tinoco, who agrees with the assessment and plan of care. - Patient Problems (1) Failure to thrive Current Visit: Yes Status: Acute (2) Malnutrition Current Visit: Yes Status: Acute (3) Syncope Current Visit: Yes Status: Acute (4) NSVT (nonsustained ventricular tachycardia) Current Visit: Yes Status: Acute (5) History of aortic valve replacement with bioprosthetic valve Current Visit: Yes Status: Chronic (6) Hypotension Current Visit: Yes Status: Acute (7) Sinus tachycardia Current Visit: Yes Status: Acute (8) Elevated d-dimer Current Visit: Yes Status: Acute (9) Anemia Current Visit: Yes Status: Acute (10) Elevated troponin Current Visit: Yes Status: Acute (11) Hypothyroidism Current Visit: Yes Status: Acute (12) Hyperlipidemia Current Visit: No Status: Chronic (13) Diabetes mellitus, type 2 Current Visit: No Status: Chronic (14) History of brain tumor Current Visit: Yes Status: Chronic (15) History of colon cancer Current Visit: Yes Status: Chronic Subjective Date of service: 07/12/20 Principal diagnosis: FTT Interval history: Remains lethargic, non-communicate. Swelling and redness of LLE noted, suspect IV infiltration - d/w RN. Tele reviewed - SR/ST 120-130s today w/PACs. Objective Last Vital Signs Temp 98.5 F 07/12/20 20:42 Pulse 132 H 07/12/20 21:35 Resp 16 07/12/20 20:42 BP 97/47 07/12/20 20:42 Pulse Ox 98 07/12/20 20:42 - Physical Examination General: Cachectic, Other (lethargic, non-verbal) HEENT: Positive: Normocephaly, Mucus Membranes Moist Neck: Positive: neck supple, trachea midline. Negative: JVD/HJR Cardiac: Positive: Regular Rhythm, S1/S2, Tachycardia Lungs: Positive: clear to auscultation Neuro: Positive: Other (non-verbal) Abdomen: Positive: Soft Skin: Positive: Wound (sacral ulcer). Negative: Rash Musculoskeletal: No Pain Extremities: Present: upper extr. pulses, lower extr. pulses. Absent: edema - Imaging and Cardiology EKG: report reviewed, image reviewed Echo: report reviewed (07/08/2020 - EF 65-70%, mild concentric LVH, well- functioning aortic valve prosthesis present, mean aortic valve gradient 8 mmHg, peak aortic valve gradient 14 mmHg, mild pulmonary hypertension) - Telemetry EKG Rhythm: Sinus Tachycardia - EKG Sinus rhythms and dysrhythmias: sinus tachycardia
[2020-07-13] MEDS: D5W/0.9% NACL 1,000 ML IV SCH ×2 (02:22→21:20)
[2020-07-13] MEDS: HEPARIN 5,000 UNIT/1 ML VIAL SUB-Q SCH ×3 (05:14→21:23)
[2020-07-13] MEDS: LEVOTHYROXINE 25 MCG TAB PO SCH (05:15)
[2020-07-13] MEDS: INSULIN LISPRO 100 UNIT/ML SUB-Q SCH ×4 (09:15→21:24)
[2020-07-13] MEDS: levETIRAcetam 500 MG/5 ML ORAL LIQD PO SCH ×2 (09:52→21:21)
[2020-07-13] MEDS: FOLIC ACID 1 MG TAB PO SCH (09:52)
[2020-07-13] MEDS: MEGESTROL 400 MG/10 ML ORAL LIQD PO SCH (09:52)
[2020-07-13] MEDS: METOPROLOL TARTRATE 25 MG TAB PO SCH ×2 (09:53→21:22)
[2020-07-13 10:02] LABS: Blood Urea Nitrogen 19 mg/dL (9-20); Calcium 7.1 mg/dL (8.4-10.2); Hemolysis Index 4
[2020-07-13 10:04] LABS: BUN/Creatinine Ratio 32
--- NOTE | 2020-07-13 10:54 | Progress Note ---
Subjective Date of service: 07/13/20 Principal diagnosis: FTT Interval history: #Syncopal episode-rule out vasovagal versus hypoglycemia Likely as a result of dehydration versus poor intake with hypoglycemia Echocardiogram-no significant findings that could explain syncopal episode Cardiology on board #Severe malnutrition/weight loss Nutrition referral Started on appetite stimulants Not a candidate for GI work-up Hypernatremia Secondary to dehydration/volume depletion Continue D5 normal saline(patient is also borderline hypotensive/low normal BP-( hence D5 normal saline) Hypoxia Patient is on 5 L via nasal cannula with O2 saturation of 100% We will decrease the oxygen to 3 L and monitor oxygen saturation #Generalized weakness Likely as result of above B12 is in the normal range, folate, is borderline low Folate supplements ordered Nutrition referral #Elevated troponin Denies any chest pain Cardiology following Echocardiogram shows no regional wall motion abnormalities Medical management per review of cardiology note #Elevated D-dimer Lower extremity venous Doppler is negative for DVT Cardiology note reviewed #Elevated TSH Start on low-dose Synthroid #DM Lispro sliding scale [low intensity] Monitor blood glucose #BPH Stable #DVT ppx - heparin Disposition - Needs SNF placement/family refused SNF placement. History Interval history: 89-year-old -[place] male with known history of hypertension, diabetes mellitus, brain tumor with history of seizures and colon cancer was brought into the emergency room by EMS today for evaluation of syncope which occurred while he was in the bathroom this afternoon. Patient states that he just feels generally weak. He denies any fever or chills, no chest pain or shortness of breath, no nausea vomiting and no diarrhea. Denies any headache or dizziness, no hematemesis, no bright red blood per rectum, no melena. However patient feels lightheaded occasionally. There has been no history of any sick contacts or recent travel. There is no contact with anyone with COVID-19. Work-up in the emergency room today, EKG, chest x-ray, CT scan of the head were unremarkable. However there was an elevation of his troponin level. Hemoglobin and hematocrit were 9.3 and 29.7 respectively. Urinalysis is being awaited. Patient has been admitted for syncope with an accompanying elevation of troponin level. Hospital course 07/09. Has no complaints this morning. Looks weak. BMI 16. Nutrition referral. Echo pending. Will check orthostatic vitals.Cardiology to see. 07/10. Discussed with patient's daughter this AM. She mentions that patient has been having poor appetite for about a month now. Has chronic weight loss 2. Nutrition referral pending. Echocardiogram shows normal EF with no significant aortic stenosis, mitral valve prolapse or hypertrophic myopathy. Orthostatic vitals negative. Etiology of syncopal episode likely vasovagal from dehydration due to poor intake. Ordered vitamin B12, folate and vitamin D level to evaluate for generalized weakness. Elevated D-dimer noted-ultrasound Doppler also ordered [doubt PE as an etiology of syncopal episode]. PT recommends placement to halfway facility 07/11 patient is awake and alert, not in any distress, he offers no specific complaints, eating poorly needs, needs assistance with feeding and ADLs Patient was hypotensive this morning, blood pressure improved with bolus with IV normal saline. Family updated. Possible discharge tomorrow 07/12 patient is lethargic, does not answer questions but is awake, looks chronically ill, eating very poorly, will start on IV fluids. I left a message with the patient's daughter regarding her views on code status and possible feeding tube placement if she prefers full code 07/13 patient is slightly more awake today but still sluggish, easily aroused, poor historian, lab results reviewed, cardiology note reviewed I had extensive discussion with the patient's daughter yesterday and they are inclining towards hospice. Unclear/undecided if they want home hospice or inpatient hospice. Will request caseworker protective services to contact the family Objective - Constitutional Vitals: Vital Signs - 12hr 07/12/20 07/12/20 07/13/20 23:37 23:39 00:00 Temperature 98.3 F Pulse Rate 76 108 H Respiratory 19 Rate Blood Pressure 92/47 O2 Sat by Pulse 97 Oximetry 07/13/20 07/13/20 07/13/20 04:56 05:27 09:53 Temperature 97.5 F L Pulse Rate 109 H 109 H Respiratory 20 Rate Blood Pressure 101/49 101/49 O2 Sat by Pulse 67 L 95 Oximetry General appearance: Present: no acute distress, cachectic - EENT Eyes: PERRL ENT: other (Dry mucous membranes) - Neck Neck: supple, normal ROM - Respiratory Respiratory effort: normal Respiratory: bilateral: CTA, diminished, negative: rales, rhonchi - Cardiovascular Rhythm: regular Heart Sounds: Present: S1 & S2 Extremities: No edema - Gastrointestinal General gastrointestinal: Present: soft, non-tender Rectal Exam: deferred - Genitourinary Male genitourinary: deferred - Integumentary Integumentary: clear - Musculoskeletal Musculoskeletal: generalized weakness - Neurologic Neurologic: moves all extremities - Psychiatric Psychiatric: other (Flat affect) - Labs CBC & Chem 7: 07/09/20 14:30 07/13/20 08:59 Labs: Abnormal lab results 07/12/20 07/12/20 07/12/20 Range/Units 12:13 15:46 21:20 Sodium (137-145) mmol/L Chloride (98-107) mmol/L Carbon Dioxide (22-30) mmol/L Creatinine (0.8-1.3) mg/dL Glucose (75-100) mg/dL POC Glucose 106 H 107 H 119 H (70-105) mg/dL Calcium (8.4-10.2) mg/dL 07/13/20 Range/Units 08:59 Sodium 148 H (137-145) mmol/L Chloride 115.5 H (98-107) mmol/L Carbon Dioxide 21 L (22-30) mmol/L Creatinine 0.6 L (0.8-1.3) mg/dL Glucose 108 H (75-100) mg/dL POC Glucose (70-105) mg/dL Calcium 7.1 L (8.4-10.2) mg/dL HEART Score - HEART Score EKG: Normal Age: > 65 Risk factors: 1-2 risk factors Troponin: Troponin T 0.076 ng/mL (0.00-0.029) H 07/10/20 05:37 Troponin: 1-3x normal limit
--- NOTE | 2020-07-13 12:34 | Progress Note ---
Assessment and Plan Would not recommend chest CTA for confirmatory testing of possible PE unless family decides to consider feeding tube placement, as benefit would be minimal and clinical suspicion of PE is relatively low under the current circumstances. Suspect sinus tachycardia is more likely physiologic. Continue other supportive measures. Pt seen in conjunction with Dr. Tinoco, who agrees with the assessment and plan of care. - Patient Problems (1) Failure to thrive Current Visit: Yes Status: Acute (2) Malnutrition Current Visit: Yes Status: Acute (3) Syncope Current Visit: Yes Status: Acute (4) NSVT (nonsustained ventricular tachycardia) Current Visit: Yes Status: Acute (5) Hypotension Current Visit: Yes Status: Acute (6) Sinus tachycardia Current Visit: Yes Status: Acute (7) Elevated d-dimer Current Visit: Yes Status: Acute (8) Anemia Current Visit: Yes Status: Acute (9) Elevated troponin Current Visit: Yes Status: Acute (10) History of aortic valve replacement with bioprosthetic valve Current Visit: Yes Status: Chronic (11) Hypothyroidism Current Visit: Yes Status: Chronic (12) Hyperlipidemia Current Visit: No Status: Chronic (13) Diabetes mellitus, type 2 Current Visit: No Status: Chronic (14) History of brain tumor Current Visit: Yes Status: Chronic (15) History of colon cancer Current Visit: Yes Status: Chronic Subjective Date of service: 07/13/20 Principal diagnosis: FTT Interval history: Remains lethargic. Able to say "yes" when asked if he is ok, "no" when asked if he is in any pain. Tele reviewed - SR/ST again in the 120-130s today w/PACs (remained in the 100-110s overnight). Objective Last Vital Signs Temp 97.5 F L 07/13/20 04:56 Pulse 109 H 07/13/20 09:53 Resp 20 07/13/20 04:56 BP 101/49 07/13/20 09:53 Pulse Ox 95 07/13/20 12:00 - Physical Examination General: Cachectic HEENT: Positive: Normocephaly, Mucus Membranes Moist Neck: Positive: neck supple, trachea midline. Negative: JVD/HJR Cardiac: Positive: S1/S2, Tachycardia Lungs: Positive: Decreased Breath Sounds (bilaterally) Neuro: Positive: Other (lethargic) Abdomen: Positive: Soft. Negative: Tender Skin: Positive: Wound (sacral ulcer). Negative: Rash Musculoskeletal: No Pain Extremities: Present: upper extr. pulses, lower extr. pulses. Absent: edema - Labs and Meds Comprehensive Metabolic Panel 07/13/20 Range/Units 08:59 Sodium 148 H (137-145) mmol/L Potassium 4.4 (3.6-5.0) mmol/L Chloride 115.5 H (98-107) mmol/L Carbon Dioxide 21 L (22-30) mmol/L BUN 19 (9-20) mg/dL Creatinine 0.6 L (0.8-1.3) mg/dL Glucose 108 H (75-100) mg/dL Calcium 7.1 L (8.4-10.2) mg/dL - Imaging and Cardiology EKG: report reviewed, image reviewed Echo: report reviewed (07/08/2020 - EF 65-70%, mild concentric LVH, well- functioning aortic valve prosthesis present, mean aortic valve gradient 8 mmHg, peak aortic valve gradient 14 mmHg, mild pulmonary hypertension) - Telemetry EKG Rhythm: Sinus Tachycardia - EKG Sinus rhythms and dysrhythmias: sinus tachycardia
[2020-07-14] MEDS: LEVOTHYROXINE 25 MCG TAB PO SCH (06:00)
[2020-07-14] MEDS: HEPARIN 5,000 UNIT/1 ML VIAL SUB-Q SCH ×3 (06:27→22:11)
[2020-07-14] MEDS: INSULIN LISPRO 100 UNIT/ML SUB-Q SCH ×3 (08:35→16:30)
[2020-07-14 10:07] LABS: Hematocrit 26.1 % (35.5-45.6); Hemoglobin 8.2 gm/dl (11.8-15.2); Mean Corpuscular HGB Conc 31 % (32-34); Mean Corpuscular Volume 85 fl (84-94); Platelet Count 283 K/mm3 (140-440); Red Blood Count 3.07 M/mm3 (3.65-5.03)
[2020-07-14 10:15] LABS: Blood Urea Nitrogen 18 mg/dL (9-20); Calcium 7.2 mg/dL (8.4-10.2); Hemolysis Index 15; Red Cell Distribution Width 20.5 % (13.2-15.2)
[2020-07-14 10:18] LABS: BUN/Creatinine Ratio 36
[2020-07-14] MEDS: DEXTROSE 5% IN WATER 1,000 ML IV SCH (10:30)
--- NOTE | 2020-07-14 10:40 | Progress Note ---
Assessment and Plan Assessment and plan: #Syncopal episode-rule out vasovagal versus hypoglycemia Likely as a result of dehydration versus poor intake with hypoglycemia Echocardiogram-no significant findings that could explain syncopal episode Cardiology on board #Severe malnutrition/weight loss Nutrition referral Started on appetite stimulants Not a candidate for GI work-up #Hypernatremia Secondary to dehydration Switch to hypotonic solution #Hypoxia On oxygen Monitor #Generalized weakness Likely as result of above B12 is in the normal range, Folate, is borderline low Folate supplements ordered Nutrition referral #Elevated troponin -Likely NSTEMI type 2 Denies any chest pain Cardiology following Echocardiogram shows no regional wall motion abnormalities Medical management per review of cardiology note #Elevated D-dimer Lower extremity venous Doppler is negative for DVT Cardiology note reviewed #Elevated TSH Start on low-dose Synthroid #DM Lispro sliding scale [low intensity] Monitor blood glucose #BPH Stable #DVT ppx - heparin Disposition - Needs SNF placement/family refused SNF placement. History Interval history: 89-year-old -[place] male with known history of hypertension, diabetes mellitus, brain tumor with history of seizures and colon cancer was brought into the emergency room by EMS today for evaluation of syncope which occurred while he was in the bathroom this afternoon. Patient states that he just feels generally weak. He denies any fever or chills, no chest pain or shortness of breath, no nausea vomiting and no diarrhea. Denies any headache or dizziness, no hematemesis, no bright red blood per rectum, no melena. However patient feels lightheaded occasionally. There has been no history of any sick contacts or recent travel. There is no contact with anyone with COVID-19. Work-up in the emergency room today, EKG, chest x-ray, CT scan of the head were unremarkable. However there was an elevation of his troponin level. Hemoglobin and hematocrit were 9.3 and 29.7 respectively. Urinalysis is being awaited. Patient has been admitted for syncope with an accompanying elevation of troponin level. Hospital course 07/09. Has no complaints this morning. Looks weak. BMI 16. Nutrition referral. Echo pending. Will check orthostatic vitals.Cardiology to see. 07/10. Discussed with patient's daughter this AM. She mentions that patient has been having poor appetite for about a month now. Has chronic weight loss 2. Nutrition referral pending. Echocardiogram shows normal EF with no significant aortic stenosis, mitral valve prolapse or hypertrophic myopathy. Orthostatic vitals negative. Etiology of syncopal episode likely vasovagal from dehydration due to poor intake. Ordered vitamin B12, folate and vitamin D level to evaluate for generalized weakness. Elevated D-dimer noted-ultrasound Doppler also ordered [doubt PE as an etiology of syncopal episode]. PT recommends placement to detention facility 07/11 patient is awake and alert, not in any distress, he offers no specific complaints, eating poorly needs, needs assistance with feeding and ADLs Patient was hypotensive this morning, blood pressure improved with bolus with IV normal saline. Family updated. Possible discharge tomorrow 07/12 patient is lethargic, does not answer questions but is awake, looks chronically ill, eating very poorly, will start on IV fluids. I left a message with the patient's daughter regarding her views on code status and possible feeding tube placement if she prefers full code 07/13 patient is slightly more awake today but still sluggish, easily aroused, poor historian, lab results reviewed, cardiology note reviewed I had extensive discussion with the patient's daughter yesterday and they are inclining towards hospice. Unclear/undecided if they want home hospice or inpatient hospice. Will request case coordinator to contact the family. 07/14. As per RN, patient may be aspirating. Will get a repeat swallow evaluation . Patient sodium continues to trend sodium 149 this AM. Switch fluids to D5 water for now. Patient's family not open to PEG placement at this time. Hospitalist Physical - Physical exam Narrative exam: VITAL SIGNS: Reviewed. GENERAL: Awake, cachectic HEAD: No signs of head trauma. Temporal wasting+ EYES: Pupils are equal. Extraocular motions intact. MOUTH: Oropharynx is normal. NECK: No adenopathy, no JVD. CHEST: Chest with diminished breath sounds bilaterally. No wheezes, rales, or rhonchi. CARDIAC: normal S1 and S2, without murmurs, gallops, or rubs. ABDOMEN: Soft, scaphoid abdomen. MUSCULOSKELETAL: No edema NEUROLOGIC EXAM: Awake and responds to commands SKIN: No obvious lesions - Constitutional Vitals: Temp Pulse Resp BP Pulse Ox 98.1 F 54 L 16 116/48 100 07/14/20 03:28 07/14/20 03:28 07/14/20 03:28 07/14/20 03:28 07/14/20 03:28 HEART Score - HEART Score EKG: Normal Age: > 65 Risk factors: 1-2 risk factors Troponin: Troponin T 0.076 ng/mL (0.00-0.029) H 07/10/20 05:37 Troponin: 1-3x normal limit Results - Labs CBC & Chem 7: 07/14/20 09:33 07/14/20 09:33 Labs: Laboratory Last Values WBC 7.7 K/mm3 (4.5-11.0) 07/14/20 09:33 RBC 3.07 M/mm3 (3.65-5.03) L 07/14/20 09:33 Hgb 8.2 gm/dl (11.8-15.2) L 07/14/20 09:33 Hct 26.1 % (35.5-45.6) L 07/14/20 09:33 MCV 85 fl (84-94) 07/14/20 09:33 MCH 27 pg (28-32) L 07/14/20 09:33 MCHC 31 % (32-34) L 07/14/20 09:33 RDW 20.5 % (13.2-15.2) H 07/14/20 09:33 Plt Count 283 K/mm3 (140-440) 07/14/20 09:33 Lymph % (Auto) 7.1 % (13.4-35.0) L 07/09/20 14:30 Bonner % (Auto) 5.4 % (0.0-7.3) 07/09/20 14:30 Eos % (Auto) 0.0 % (0.0-4.3) 07/09/20 14:30 Baso % (Auto) 0.2 % (0.0-1.8) 07/09/20 14:30 Lymph # (Auto) 0.5 K/mm3 (1.2-5.4) L 07/09/20 14:30 Bonner # (Auto) 0.4 K/mm3 (0.0-0.8) 07/09/20 14:30 Eos # (Auto) 0.0 K/mm3 (0.0-0.4) 07/09/20 14:30 Baso # (Auto) 0.0 K/mm3 (0.0-0.1) 07/09/20 14:30 Seg Neutrophils % 87.3 % (40.0-70.0) H 07/09/20 14:30 Seg Neutrophils # 6.3 K/mm3 (1.8-7.7) 07/09/20 14:30 PT 15.2 Sec. (12.2-14.9) H 07/09/20 14:30 INR 1.20 (0.87-1.13) H 07/09/20 14:30 D-Dimer 1615.19 ng/mlDDU (0-234) H 07/10/20 05:37 Sodium 149 mmol/L (137-145) H 07/14/20 09:33 Potassium 4.3 mmol/L (3.6-5.0) 07/14/20 09:33 Chloride 119.8 mmol/L (98-107) H 07/14/20 09:33 Carbon Dioxide 20 mmol/L (22-30) L 07/14/20 09:33 Anion Gap 14 mmol/L 07/14/20 09:33 BUN 18 mg/dL (9-20) 07/14/20 09:33 Creatinine 0.5 mg/dL (0.8-1.3) L 07/14/20 09:33 Estimated GFR > 60 ml/min 07/14/20 09:33 BUN/Creatinine Ratio 36 % 07/14/20 09:33 Glucose 124 mg/dL (75-100) H 07/14/20 09:33 POC Glucose 104 mg/dL (70-105) 07/13/20 21:22 Calcium 7.2 mg/dL (8.4-10.2) L 07/14/20 09:33 Magnesium 2.10 mg/dL (1.7-2.3) 07/08/20 18:02 Total Bilirubin 0.50 mg/dL (0.1-1.2) 07/08/20 18:02 Direct Bilirubin 0.3 mg/dL (0-0.2) H 07/08/20 18:02 Indirect Bilirubin 0.2 mg/dL 07/08/20 18:02 AST 106 units/L (5-40) H 07/08/20 18:02 ALT 20 units/L (7-56) 07/08/20 18:02 Alkaline Phosphatase 775 units/L (35-129) H 07/08/20 18:02 Troponin T 0.076 ng/mL (0.00-0.029) H 07/10/20 05:37 Total Protein 5.3 g/dL (6.3-8.2) L 07/08/20 18:02 Albumin 2.6 g/dL (3.9-5) L 07/08/20 18:02 Albumin/Globulin Ratio 1.0 % 07/08/20 18:02 Triglycerides 98 mg/dL (2-149) 07/08/20 18:02 Cholesterol 136 mg/dL (50-199) 07/08/20 18:02 LDL Cholesterol Direct 52 mg/dL (50-130) 07/08/20 18:02 HDL Cholesterol 60 mg/dL (40-59) H 07/08/20 18:02 Cholesterol/HDL Ratio 2.26 % 07/08/20 18:02 Vitamin B12 2000 pg/mL (211-911) H 07/10/20 15:38 Folate 5.66 ng/mL (7.3-26.0) L 07/10/20 15:38 TSH 8.880 mlU/mL (0.270-4.200) H 07/10/20 05:37 Free T4 1.26 ng/dL (0.76-1.46) 07/10/20 15:38 Urine Color Yellow (Yellow) 07/09/20 15:38 Urine Turbidity Clear (Clear) 07/09/20 15:38 Urine pH 5.0 (5.0-7.0) 07/09/20 15:38 Ur Specific [place] 1.018 (1.003-1.030) 07/09/20 15:38 Urine Protein 30 mg/dl mg/dL (Negative) 07/09/20 15:38 Urine Glucose (UA) Neg mg/dL (Negative) 07/09/20 15:38 Urine Ketones Tr mg/dL (Negative) 07/09/20 15:38 Urine Blood Neg (Negative) 07/09/20 15:38 Urine Nitrite Neg (Negative) 07/09/20 15:38 Urine Bilirubin Neg (Negative) 07/09/20 15:38 Urine Urobilinogen 4.0 mg/dL (<2.0) 07/09/20 15:38 Ur Leukocyte Esterase Neg (Negative) 07/09/20 15:38 Urine WBC (Auto) 1.0 /HPF (0.0-6.0) 07/09/20 15:38 Urine RBC (Auto) < 1.0 /HPF (0.0-6.0) 07/09/20 15:38 Urine Mucus Few /HPF 07/09/20 15:38 Mccrary/IV: Voiding Method Incontinent Active Medications - Current Medications Current Medications: Generic Name Dose Route Start Last Admin Trade Name Freq PRN Reason Stop Dose Admin Acetaminophen 650 mg 07/08/20 22:12 07/10/20 12:37 Acetaminophen 325 Mg Tab PO 650 mg Q4H PRN Administration Pain MILD(1-3)/Fever >100.5/V[place]LE[place]AS Hydrocodone Bitart/Acetaminophen 1 each 07/11/20 08:00 Hydrocodone/Acetaminophen 5-325 Mg Tab PO Q6H PRN Pain, Moderate (4-6) Dextrose 0 ml 07/08/20 22:12 07/11/20 09:08 Dextrose 50% In Water (25gm) 50 Ml Syringe IV 10 ml Q30MIN PRN Administration Hypoglycemia Protocol Folic Acid 1 mg 07/11/20 10:00 07/13/20 09:52 Folic Acid 1 Mg Tab PO 1 mg QDAY JAYME Administration Heparin Sodium (Porcine) 5,000 unit 07/09/20 06:00 07/14/20 06:27 Heparin 5,000 Unit/1 Ml Vial SUB-Q 5,000 unit Q8HR JAYME Administration Dextrose 1,000 mls @ 75 mls/hr 07/14/20 11:00 D5w IV 07/15/20 10:59 DIRECT JAYME Insulin Human Lispro 0 unit 07/09/20 07:30 07/14/20 08:35 Insulin Lispro 100 Unit/Ml SUB-Q Not Given ACHS JAYME Protocol Levetiracetam 750 mg 07/11/20 10:00 07/13/20 21:21 Levetiracetam 500 Mg/5 Ml Oral Liqd PO 750 mg Q12HR JAYME Administration Levothyroxine Sodium 25 mcg 07/12/20 06:00 07/13/20 05:15 Levothyroxine 25 Mcg Tab PO 25 mcg DAILY@0600 JAYME Administration Magnesium Hydroxide 30 ml 07/08/20 22:12 Magnesium Hydroxide (Mom) Oral Liqd Udc PO Q4H PRN Constipation Megestrol Acetate 400 mg 07/10/20 10:00 07/13/20 09:52 Megestrol 400 Mg/10 Ml Oral Liqd PO 400 mg QDAY JAYME Administration Metoprolol Tartrate 6.25 mg 07/13/20 10:00 07/13/20 21:22 Metoprolol Tartrate 25 Mg Tab PO 6.25 mg BID JAYME Administration Morphine Sulfate 2 mg 07/08/20 22:12 Morphine 4 Mg/1 Ml Inj IV Q5MIN PRN Chest Pain Nitroglycerin 0.4 mg 07/08/20 22:12 Nitroglycerin 0.4 Mg Tab Subl SL Q5M PRN Chest Pain Ondansetron HCl 4 mg 07/08/20 22:12 Ondansetron 4 Mg/2 Ml Inj IV Q8H PRN Nausea And Vomiting Sodium Chloride 10 ml 07/09/20 10:00 07/13/20 21:23 Sodium Chloride 0.9% 10 Ml Flush Syringe IV 10 ml BID JAYME Administration Sodium Chloride 10 ml 07/08/20 22:12 Sodium Chloride 0.9% 10 Ml Flush Syringe IV PRN PRN LINE FLUSH Nutrition/Malnutrition Assess - Dietary Evaluation Nutrition/Malnutrition Findings: Nutrition Notes Start: 07/09/20 10:45 Freq: Status: Active Protocol: Document 07/11/20 09:22 AT (Rec: 07/11/20 09:25 AT [id number]) Co-Sign 07/11/20 09:22 CW Nutrition Notes Initial or Follow up Reassessment Current Diagnosis Decubitus(Pressure Ulcer), Diabetes,Hypertension, Hyperlipidemia Other Pertinent Diagnosis Hx of brain/colon CA, Syncope Current Diet Mech soft with nectar thickened liquids Labs/Tests 5/6 Cr 0.5 BG 67 Ca 7.3 Hgb 8.8 Pertinent Medications Megesterol NS at 1L Synthroid Folic Acid Height 5 ft 9 in Weight 50.2 kg Crowell Body Weight (kg) 72.72 BMI 16.3 Weight change and time frame Per chart, 16% wt loss in two months Weight Status Underweight Subjective/Other Information Follow up for intakes and ONS tolerance. Visited pt at bedside and observed 0% of breakfast consumed and 2 untouched ONS. Pt indicated that he does not like them. Will reduce ONS from TID to BID. Pt's food preferences were recorded. Pt is malnourished and alternative method for feeding is indicated. Percent of energy/protein needs met: 0%/0% Burn Absent Trauma Absent GI Symptoms None Difficulty In Swallowing Food Allergy No Skin Integrity/Comment Pressure Ulcer Current % PO Negligible Minimum of two criteria Yes Energy Intake (non-severe) <75% Estimated Energy Requirement >7 days Interpretation of Weight Loss (severe) >5% in 1 month Body Fat Depletion Moderate depletion (severe) Muscle Mass Moderate Depletion (severe) #1 Nutrition Diagnosis Malnutrition Diagnosis Progress(for reassessment Continues documentation) Is patient on ventilator? No Is Patient Ambulatory and/or Out of Bed No REE-([place]-St. Jeor-confined to bed) 1396.782 Calculation Used [facility] Recommendations [facility] Additional Notes PRO needs: 60-75g (1.2-1.5 g/ kg) Fluid needs: 1 mL/kcal Nutrition Intervention Change Diet Order: Continue Add Supplement/Snack (indicate name/kcal Nepro BID /protein ) Provides kCal: 850 Provides Protein (gm) 38 Goal #1 Meet at least 75% of protein and energy needs via PO and ONS intakes Goal #2 Weight gain/maintenance Goal #3 Wound healing Anticipated Discharge Needs: Mech soft with nectar thickened liquids and ONS daily Follow-Up By: 07/14/20 Additional Comments F/U for intakes, ONS tolerance , POC
[2020-07-14 11:33] LABS: Vitamin D, 25-OH, D2 <4 ng/mL
[2020-07-14] MEDS: MEGESTROL 400 MG/10 ML ORAL LIQD PO SCH (16:40)
[2020-07-14] MEDS: levETIRAcetam 500 MG/5 ML ORAL LIQD PO SCH (16:40)
[2020-07-14] MEDS: METOPROLOL TARTRATE 25 MG TAB PO SCH (16:40)
[2020-07-14] MEDS: FOLIC ACID 1 MG TAB PO SCH (16:40)
--- NOTE | 2020-07-14 17:10 | Progress Note ---
Assessment and Plan Telemetry reviewed: Sinus rhythm 79. No events * Elevated troponins * Troponins are elevated x3, subacute and nonspecific. Suspect supply/demand mismatch. Continue aspirin 325 p.o. daily * Considering current mental state and comorbidities, will plan for conservative cardiac management. * Nonsustained SVT * Continue current rate control regimen: Metoprolol 6.25 twice daily. Continue to monitor on telemetry * Syncopal episode * Review of labs show initial POC blood glucose of 66, subsequently normalized. * Orthostatic blood pressures are normal. * Echocardiogram reviewed (07/08/2020): LVEF is 65 to 70%. LV SF is normal. Mild concentric left ventricular hypertrophy. RV SF is normal. Well- functioning aortic valve prosthesis present. Mean aortic valve gradient is 8 mmHg, peak aortic valve gradient is 14 mmHg. Mild pulmonary hypertension RVSP 40 mmHg. * Carotid ultrasound shows no obstructive pathology * Anemia in setting of malnutrition * BMI 16. Management per primary team * Hypothyroid, subacute * TSH is elevated. Free T4 is normal * Elevated D-dimer * Duplex ultrasound of the bilateral lower extremity showed no thrombus/occlusion * DVT prophylaxis * Heparin SQ Patient is currently in stable cardiac status. Tachycardia appears to be physiologic. Considering current mental state and comorbidities will plan for conservative cardiac management. Will follow on as-needed basis. Patient should follow-up with Dr Whalen in our office within 1 to 2 weeks of discharge. #[phone] This patient was seen in conjunction with Dr Jose Marshall who agrees with this assessment and plan of care - Patient Problems (1) Elevated troponin Current Visit: Yes Status: Acute (2) Syncope Current Visit: Yes Status: Acute (3) Anemia Current Visit: Yes Status: Acute (4) Malnutrition Current Visit: Yes Status: Acute (5) Hypoglycemia Current Visit: Yes Status: Resolved (6) DVT prophylaxis Current Visit: Yes Status: Acute (7) Diabetes mellitus Current Visit: Yes Status: Chronic (8) History of colon cancer Current Visit: Yes Status: Chronic (9) History of brain tumor Current Visit: Yes Status: Chronic (10) Hypertension Current Visit: Yes Status: Chronic Qualifiers: Hypertension type: essential hypertension Qualified Code(s): I10 - Essential (primary) hypertension (11) History of aortic valve replacement with bioprosthetic valve Current Visit: Yes Status: Chronic (12) Hypothyroidism Current Visit: Yes Status: Chronic (13) Weakness Current Visit: Yes Status: Acute (14) DVT prophylaxis Current Visit: No Status: Acute Subjective Date of service: 07/14/20 Principal diagnosis: FTT Interval history: Patient resting in bed. Altered mental status, pleasantly confused Telemetry reviewed: Sinus tach 112. Episode of 3 beat V. tach noted overnight. Objective Last Vital Signs Temp 98.1 F 07/14/20 03:28 Pulse 54 L 07/14/20 10:00 Resp 16 07/14/20 03:28 BP 116/48 07/14/20 03:28 Pulse Ox 97 07/14/20 11:00 - Physical Examination General: Cachectic HEENT: Positive: Normocephaly, Mucus Membranes Moist Neck: Positive: neck supple, trachea midline. Negative: JVD/HJR Cardiac: Positive: Reg Rate and Rhythm Lungs: Positive: Normal Exam, Normal Breath Sounds Neuro: Positive: Other (lethargic) Abdomen: Positive: Soft. Negative: Tender Skin: Positive: Wound (sacral ulcer). Negative: Rash Musculoskeletal: No Pain Extremities: Present: upper extr. pulses, lower extr. pulses. Absent: edema - Labs and Meds CBC 07/14/20 Range/Units 09:33 WBC 7.7 (4.5-11.0) K/mm3 RBC 3.07 L (3.65-5.03) M/mm3 Hgb 8.2 L (11.8-15.2) gm/dl Hct 26.1 L (35.5-45.6) % Plt Count 283 (140-440) K/mm3 Comprehensive Metabolic Panel 07/14/20 Range/Units 09:33 Sodium 149 H (137-145) mmol/L Potassium 4.3 (3.6-5.0) mmol/L Chloride 119.8 H (98-107) mmol/L Carbon Dioxide 20 L (22-30) mmol/L BUN 18 (9-20) mg/dL Creatinine 0.5 L (0.8-1.3) mg/dL Glucose 124 H (75-100) mg/dL Calcium 7.2 L (8.4-10.2) mg/dL - Imaging and Cardiology EKG: report reviewed, image reviewed Echo: report reviewed (07/08/2020 - EF 65-70%, mild concentric LVH, well- functioning aortic valve prosthesis present, mean aortic valve gradient 8 mmHg, peak aortic valve gradient 14 mmHg, mild pulmonary hypertension) - Telemetry EKG Rhythm: Sinus Tachycardia - EKG Sinus rhythms and dysrhythmias: sinus tachycardia
[2020-07-15] MEDS: levETIRAcetam 500 MG/5 ML ORAL LIQD PO SCH ×2 (05:38→10:03)
[2020-07-15] MEDS: DEXTROSE 5% IN WATER 1,000 ML IV SCH (05:40)
[2020-07-15 06:30] LABS: Blood Urea Nitrogen 16 mg/dL (9-20); Calcium 7.4 mg/dL (8.4-10.2); Hemolysis Index 6
[2020-07-15 06:31] LABS: BUN/Creatinine Ratio 32
[2020-07-15] MEDS: INSULIN LISPRO 100 UNIT/ML SUB-Q SCH ×3 (08:30→16:14)
[2020-07-15] MEDS: METOPROLOL TARTRATE 25 MG TAB PO SCH (10:02)
[2020-07-15] MEDS: FOLIC ACID 1 MG TAB PO SCH (10:03)
[2020-07-15] MEDS: MEGESTROL 400 MG/10 ML ORAL LIQD PO SCH (10:03)
[2020-07-15] MEDS: LEVOTHYROXINE 25 MCG TAB PO SCH (10:03)
[2020-07-15] MEDS: HEPARIN 5,000 UNIT/1 ML VIAL SUB-Q SCH ×2 (10:04→16:11)
[2020-07-15] MEDS ORDERED: METOPROLOL TARTRATE 5 MG/5 ML INJ IV SCH (15:00)
--- NOTE | 2020-07-15 15:34 | Discharge Summary ---
Providers - Providers Date of Admission: 07/12/20 11:40 Date of discharge: 07/15/20 Attending physician: CALLI COKER 07/08/20 Consult to Cardiac Rehabilitation [CONS] Routine Reason For Exam: Phase I 07/08/20 22:13 Consult to Cardiology [CONS] Routine Consulting Provider: BRYANNA WAGNER Reason For Exam: Chest Pain Consult to Dietitian/Nutrition [CONS] Routine Physician Instructions: Reason For Exam: Reason for Consult: Diet education 07/09/20 10:51 Occupational Therapy Evaluate and Treat [CONS] Routine Comment: Reason For Exam: debility Physical Therapy Evaluation and Treat [CONS] Routine Comment: Reason For Exam: debility 07/09/20 10:53 Consult to Wound/ET Nurse [CONS] Routine Reason For Exam: wound eval...sacrum/scrotum 07/09/20 12:00 Speech Therapy Evaluation and Treat [CONS] Routine Reason For Exam: coughing when swallowing 07/13/20 10:55 Consult to Case Management [CONS] Routine Services Needed at Discharge: Other Notified:: case hardener Additional Physician Instructions: Family is leaning towards hospice but undecided home hospice versus inpatient hospice 07/14/20 10:36 Speech Therapy Evaluation and Treat [CONS] Routine Reason For Exam: Possible aspiration during meals 07/15/20 09:32 Speech Therapy Evaluation and Treat [CONS] Urgent Reason For Exam: coughing with meals 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 Work-up in the emergency room EKG, chest x-ray, CT scan of the head were unremarkable. However there was an elevation of his troponin level. Hemoglobin and hematocrit were 9.3 and 29.7 respectively. Urinalysis normal. Patient was admitted for syncope with an accompanying elevation of troponin level. daily clinical course 07/09. Has no complaints this morning. Looks weak. BMI 16. Nutrition referral. Echo pending. Will check orthostatic vitals. Cardiology to see. 07/10. Discussed with patient's daughter this AM. She mentions that patient has been having poor appetite for about a month now. Has chronic weight loss. Nutrition referral pending. Echocardiogram shows normal EF with no significant aortic stenosis, mitral valve prolapse or hypertrophic myopathy. Orthostatic vitals negative. Carotid Doppler showed less than 50% stenosis bilaterally. Etiology of syncopal episode likely vasovagal from dehydration due to poor intake. Ordered vitamin B12, folate and vitamin D level to evaluate for generalized weakness. Elevated D-dimer noted-ultrasound Doppler also ordered [doubt PE as an etiology of syncopal episode]. PT recommends placement to [facility] facility 07/11 lower extremity venous Doppler negative for DVT. Patient is awake and alert, not in any distress, he offers no specific complaints, eating poorly needs, needs assistance with feeding and ADLs. Patient was hypotensive this morning, blood pressure improved with bolus with IV normal saline. Family updated. Possible discharge tomorrow 07/12 patient is lethargic, does not answer questions but is awake, looks chronically ill, eating very poorly, will start on IV fluids. I left a message with the patient's daughter regarding her views on code status and possible feeding tube placement if she prefers full code 07/13 patient is slightly more awake today but still sluggish, easily aroused, poor historian, lab results reviewed, cardiology note reviewed I had extensive discussion with the patient's daughter yesterday and they are inclining towards hospice. Unclear/undecided if they want home hospice or inpatient hospice. Will request case hardener to contact the family. 07/14. As per RN, patient may be aspirating. Will get a repeat swallow evaluation. Patient sodium continues to trend sodium 149 this AM. Switch fluids to D5 water for now. Patient's family not open to PEG placement at this time. Family considering hospice placement. Case management was consulted for home hospice arrangement. 07/15: Patient accepted to home hospice service and will be discharged home with home hospice. Disposition: - TO HOME OR SELFCARE Final Discharge Diagnosis (Prints w/discharge instructions): Syncopal episode likely due to vasovagal. Severe protein calorie malnutrition with weight loss and BMI 16.2. Hypernatremia due to dehydration. Acute hypoxic respiratory failure, likely from chronic aspiration. Generalized weakness with debility. Elevated troponin likely NSTEMI type II. Elevated D-dimer, lower extremity venous Doppler was negative. Hypothyroidism with elevated TSH. Diabetes mellitus type 2. BPH. Severe advanced dementia Time spent for discharge: 35 minutes Core Measure Documentation - Palliative Care Palliative Care/ Comfort Measures: Hospice Care - Core Measures Any of the following diagnoses?: history only Exam - Physical Exam Narrative exam: VITAL SIGNS: Reviewed. GENERAL: Awake, cachectic HEAD: No signs of head trauma. Temporal wasting+ EYES: Pupils are equal. Extraocular motions intact. MOUTH: Oropharynx is normal. NECK: No adenopathy, no JVD. CHEST: Chest with diminished breath sounds bilaterally. No wheezes, rales, or rhonchi. CARDIAC: normal S1 and S2, without murmurs, gallops, or rubs. ABDOMEN: Soft, scaphoid abdomen. MUSCULOSKELETAL: No edema NEUROLOGIC EXAM: Awake and responds to commands, not oriented to time place and person SKIN: No obvious lesions - Constitutional Vitals: Temp Pulse Resp BP Pulse Ox 98.0 F 76 18 119/54 92 07/15/20 08:19 07/15/20 10:02 07/15/20 08:19 07/15/20 10:02 07/15/20 08:19 Plan Activity: up only with assistance Additional Instructions: Further plan and management will be provided by hospice service following discharge Follow up with: PRIMARY MD TAM [Primary Care Provider] - 3-5 Days
[2020-07-15] MEDS ORDERED: levETIRAcetam 750 MG in DEXTROSE 5% IN WATER 100 ML IV SCH (17:00)
[2020-07-15 19:50] VITALS: BP 118/47
--- NOTE | 2020-07-23 10:46 | Electrocardiograph Report ---
[facility] Test Date: 2020-07-08 Test Time: 17:34:29 Pat Name: KHLOE CONNOR Department: Room: A471 1 Gender: M Activity Director: SHANNON : 1930 Requested By: OLU GRIFFIN Order Number: [id number] Reading MD: Devon Cohen Measurements Intervals [place] Rate: 91 P: -21 WI: 104 QRS: -3 QRSD: 81 T: 63 QT: 369 QTc: 456 Interpretive Statements Sinus rhythm non specific st-t Compared to ECG 06/14/2020 22:24:01 Electronically Signed On 07-23-2020 10:45:30 EDT by Devon Cohen
== END 2020-07-15 22:17 | disposition hospice, home (50) | DRG 280 ==
LOC: ED 16:30 → 4A 21:53 → OBSVTOIN 07-12 11:40
PROVIDERS: ADMIT Internal Medicine Geriatric Medicine; ATTEND Internal Medicine
DX: R55 Syncope and collapse (principal); I21.A1 Myocardial infarction type 2; E43 Unspecified severe protein-calorie malnutrition; J96.01 Acute respiratory failure with hypoxia; Z68.1 Body mass index [BMI] 19.9 or less, adult; I47.1 Supraventricular tachycardia; E87.0 Hyperosmolality and hypernatremia; E86.0 Dehydration; Z20.822 Contact with and (suspected) exposure to COVID-19; R62.7 Adult failure to thrive; I95.9 Hypotension, unspecified; E03.9 Hypothyroidism, unspecified; F03.90 Unspecified dementia, unspecified severity, without behavioral disturbance, psychotic disturbance, mood disturbance, and anxiety; E78.5 Hyperlipidemia, unspecified; E11.649 Type 2 diabetes mellitus with hypoglycemia without coma; D50.9 Iron deficiency anemia, unspecified; N40.0 Benign prostatic hyperplasia without lower urinary tract symptoms; I10 Essential (primary) hypertension; Z85.038 Personal history of other malignant neoplasm of large intestine
CPT/HCPCS: 36415; 70450; 71045; 80048; 80061; 80076; 81001; 82306; 82607; 82747; 82962; 83735; 84439; 84443; 84484; 85025; 85027; 85379; 85610; 93005; 93306; 93880; 93970; 96361; 96365; 96366; 96367; 96368; 96375; 96376; G0378; J1644; J1953; J7030; J7042; J7070; U0003